=== PATIENT | female | born 1990 | race Caucasian/White ===

== ENCOUNTER → 2016-09-25 | Day surgery (SDC) | payer OTHER ==
[~2016-09-25] VITALS: Ht 157.5 cm; Wt 56.0 kg
[~2016-09-25] MED LIST: ACETAMINOPHEN 1000 MG/100 ML VIAL IV ONE; ADDE30TA PO; ALBU6.7H INH; ALPR1TAB3 PO; ASCO500T PO; AZO-95TA2 PO; B-COCAP9 PO; BIOT1CAP2 PO; CIPR-9 PO; COLA100C3 PO; CRAN125T PO; DEXAMETHASONE SOD PHOS 4 MG/ML VIAL ONE; DO NOT ADM ANY ANTICOAGULANT DRUGS XX PRN; FERR1TAB7; FERR65TA PO; HYDR2TAB PO; INSULIN HUMAN REGULAR 1,000 UNITS/10 ML VIAL SQ PRN; KETOROLAC TROMETHAMINE 30 MG/ML (IVP) VIAL IV PUSH PRN; KETOROLAC TROMETHAMINE 60 MG/2 ML (IM) VIAL IM ONE; LACTATED RINGER'S 1000 ML IV SCH; LIDOCAINE 1%/EPINEPHrine 1:100,000 SOLN 20 ML VIAL ONE; LORA-361 PO; MACR100C2 PO; METOPROLOL TARTRATE 25 MG TAB PO PRN; MIDAZOLAM HCL 2 MG/2 ML VIAL ONE; MULT1LOZ BUCCAL; ONDANSETRON HCL 4 MG/2 ML VIAL ONE; ORTHTAB4 PO; OXYB5TAB10 PO; OXYC1TAB63 PO; PROPOFOL 200 MG/20 ML AMP IV ONE; PYRI200T4 PO; SODIUM CHLORID 0.9% 500 ML IV SCH; TYLETAB34 PO; VESI5TAB PO; ZOFR8TAB PO; [UNRECOGNIZED DRUG - CODE] PO; fentaNYL CITRATE 250 MCG/5 ML AMP ONE
[2016-09-25 05:48] VITALS: BP 107/68; PULSE 94; RESP 20; TEMP 98.5; O2SAT 100
--- NOTE | 2016-09-25 08:27 | MP ---
cc: FANNIE BALLARD,YANIV Shrestha MD DATE OF SURGERY 09/25/2016 PREOPERATIVE DIAGNOSIS Squamous cell carcinoma of the cervix. 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 PROCEDURE 1. Examination under anesthesia, cervix biopsies. 2. Cystoscopy. 3. Proctoscopy. SURGEON Yaniv Waldron MD INTRAOPERATIVE CONSULT Dr. Delta Claros, Radiation Oncology ANESTHESIA Laryngeal mask anesthesia. ESTIMATED BLOOD LOSS 40 cc. HISTORY A 26-year-old female who on exam by Dr. Ballard was found to have an exophytic tumor. Biopsy showed invasive squamous cell carcinoma. She has been bleeding irregularly for many months, even more so in the last couple of months. She was seen in the oncology clinic. She was counseled. She had a CAT scan yesterday. She presents now for further evaluation with exam under anesthesia to help complete clinical staging and assessment of the extent of the tumor. FINDINGS On exam under anesthesia there was no appreciably enlarged inguinal lymph nodes. External genitalia without mass or lesion. Upon speculum exam the entire cervix is replaced with large exophytic tumor. Bimanual exam shows some early parametrial infiltration on the left side but still with some mobility on the right side. However, there was clear infiltration with fixation of the right parametria, cannot say definitively if there is extension all the way to the right pelvic sidewall, but there is clearly significant right parametrial involvement. A sterile ruler is used to measure from the 12 o'clock position to the 6 o'clock position of the tumor and measures between 7 and 8 cm in diameter. It is friable, hemorrhagic. On cystoscopy there is amorphous debris in the bladder but no obvious tumor infiltration. No mass or nodularity. The ureteral ostia are visualized and is efflux of urine bilaterally. The remainder of the mucosa appears normal. On proctoscopy to 16 cm the mucosa appears normal. There is no obvious invasion, tumor, polyp or other abnormality. There is extrinsic compression from the cervical tumor and visibility is limited above that from being unprepped and from the angle change to the bowel from the cervix. PROCEDURE The patient was taken to the operating room, placed in dorsal lithotomy position after laryngeal mask anesthesia was administered. A time-out was undertaken. The patient was identified by sight recognition and hospital ID bracelet and the proposed procedure was reviewed and confirmed. Exam under anesthesia was performed with the findings as described above. She was prepped and draped in sterile fashion. Biopsies of the cervix were obtained. A Ray-Kimberli sponge was placed in the vagina to assist in hemostasis. Cystoscopy was performed using a 30-degree scope with the findings as described above. The bladder was drained and rigid proctosigmoidoscopy was performed with the findings as described above. A change of sterile gloves was undertaken. Dr. Delta Claros was now present for evaluation, performed an exam under anesthesia as well and the tumor was rendered hemostatic. first with Monsel's solution and then a little bit of continued oozing was addressed by placing Rolo hemostatic agent over the entire surface of the tumor and there was satisfactory hemostasis. The Ray-Kimberli sponge that had been in the vagina was removed prior to application of the hemostatic agent. There were no remaining foreign objects in the vagina. Preliminary and final counts were correct. She was returned to dorsal supine position and was pending reversal of anesthesia when I left the operating room to precede her to the Post-Anesthesia Care Unit. MD RONAK Benites/LAWRENCE /7:48 AM /8:13 AM
[2016-09-25 09:30] VITALS: BP 94/58; PULSE 73; RESP 20; TEMP 98; O2SAT 100
== END | disposition home or self-care (01) ==
LOC: HSDC 05:12
PROVIDERS: ATTEND Obstetrics & Gynecology Gynecologic Oncology
DX: C53.9 Malignant neoplasm of cervix uteri, unspecified (principal)
CPT/HCPCS: 00940; 45300; 52000; 57500; 86850; 86900; 86901; 88305; J0131; J1100; J1885; J2250; J2405; J3010; J7120; 88112

== ENCOUNTER 2016-10-02 13:30 | Inpatient (IN) | payer OTHER ==
[~2016-10-02] VITALS: Ht 157.5 cm; Wt 57.6 kg
[~2016-10-02 13:30] MED LIST changes: -ACETAMINOPHEN 1000 MG/100 ML VIAL IV ONE; -ASCO500T PO; -AZO-95TA2 PO; -CIPR-9 PO; -COLA100C3 PO; -DEXAMETHASONE SOD PHOS 4 MG/ML VIAL ONE; -DO NOT ADM ANY ANTICOAGULANT DRUGS XX PRN; -FERR1TAB7; -HYDR2TAB PO; -INSULIN HUMAN REGULAR 1,000 UNITS/10 ML VIAL SQ PRN; -KETOROLAC TROMETHAMINE 30 MG/ML (IVP) VIAL IV PUSH PRN; -KETOROLAC TROMETHAMINE 60 MG/2 ML (IM) VIAL IM ONE; -LACTATED RINGER'S 1000 ML IV SCH; -LIDOCAINE 1%/EPINEPHrine 1:100,000 SOLN 20 ML VIAL ONE; -MACR100C2 PO; -METOPROLOL TARTRATE 25 MG TAB PO PRN; -MIDAZOLAM HCL 2 MG/2 ML VIAL ONE; -MULT1LOZ BUCCAL; -ONDANSETRON HCL 4 MG/2 ML VIAL ONE; -ORTHTAB4 PO; -OXYB5TAB10 PO; -OXYC1TAB63 PO; -PROPOFOL 200 MG/20 ML AMP IV ONE; -PYRI200T4 PO; -SODIUM CHLORID 0.9% 500 ML IV SCH; -VESI5TAB PO; -ZOFR8TAB PO; -[UNRECOGNIZED DRUG - CODE] PO; -fentaNYL CITRATE 250 MCG/5 ML AMP ONE
[2016-10-09 09:11] VITALS: BP 103/60; PULSE 88; RESP 20; TEMP 97.8; O2SAT 100
[2016-10-09] MEDS ORDERED: [UNRECOGNIZED DRUG - CODE] PO ×2 (09:28)
[2016-10-09] MEDS ORDERED: ZOFR8TAB PO ×2 (09:28)
[2016-10-09] MEDS ORDERED: HEPARIN SODIUM - SQ 10,000 UNITS/ML VIAL SQ SCH (09:30)
[2016-10-09] MEDS ORDERED: INSULIN HUMAN REGULAR 1,000 UNITS/10 ML VIAL SQ PRN (09:45)
[2016-10-09] MEDS ORDERED: LACTATED RINGER'S 1000 ML IV SCH (09:45)
[2016-10-09] MEDS ORDERED: METOPROLOL TARTRATE 25 MG TAB PO PRN (09:45)
[2016-10-09] MEDS ORDERED: SODIUM CHLORID 0.9% 500 ML IV SCH (09:45)
[2016-10-09] MEDS ORDERED: LEVOFLOXACIN 500 MG PREMIX INJ 100 ML IV SCH (11:00)
[2016-10-09] MEDS ORDERED: METRONIDAZOLE 500 MG/100 ML ISONTONIC SOLN IV SCH (11:00)
[2016-10-09] MEDS ORDERED: FAMOTIDINE 20 MG/2 ML VIAL ONE (11:45)
[2016-10-09] MEDS ORDERED: KETOROLAC TROMETHAMINE 60 MG/2 ML (IM) VIAL IM ONE (12:00)
[2016-10-09] MEDS ORDERED: PROPOFOL 200 MG/20 ML AMP IV ONE (12:00)
[2016-10-09] MEDS ORDERED: ONDANSETRON HCL 4 MG/2 ML VIAL IV PUSH ONE (12:00)
[2016-10-09] MEDS ORDERED: LACTATED RINGER'S 1000 ML INJ 1,000 ML IV ONE (12:00)
[2016-10-09] MEDS ORDERED: MIDAZOLAM HCL 2 MG/2 ML VIAL ONE (12:46)
[2016-10-09] MEDS ORDERED: DEXAMETHASONE SOD PHOS 4 MG/ML VIAL ONE (12:46)
[2016-10-09] MEDS ORDERED: fentaNYL CITRATE 250 MCG/5 ML AMP ONE ×2 (12:59→16:46)
[2016-10-09] MEDS ORDERED: ACETAMINOPHEN 1000 MG/100 ML VIAL IV ONE (12:59)
[2016-10-09] MEDS ORDERED: ONDANSETRON HCL 4 MG/2 ML VIAL ONE (12:59)
[2016-10-09] MEDS ORDERED: LIDOCAINE 1%/EPINEPHrine 1:100,000 SOLN 30 ML VIAL INFIL ONE (13:44)
[2016-10-09] MEDS ORDERED: SUGAMMADEX SODIUM 200 MG/2 ML VIAL IV PUSH ONE ×2 (15:54)
[2016-10-09] MEDS ORDERED: DO NOT ADM ANY ANTICOAGULANT DRUGS XX PRN (16:34)
[2016-10-09] MEDS ORDERED: SODIUM CHLORIDE 0.9% FLUSH 5 ML FLUSH FLUSH PRN (16:45)
[2016-10-09] MEDS ORDERED: ONDANSETRON HCL 4 MG/2 ML VIAL IVP PRN (16:45)
[2016-10-09] MEDS ORDERED: oxyCODONE/ACETAMINOPHEN 5 MG/325 MG TAB PO PRN (16:45)
[2016-10-09] MEDS ORDERED: ALPRAZolam 1 MG TAB PO PRN (16:45)
[2016-10-09] MEDS ORDERED: diphenhydrAMINE HCL 25 MG CAP PO PRN (16:45)
[2016-10-09] MEDS ORDERED: HYDROmorphone HCL PF 1 MG/ML VIAL IVP PRN (16:45)
[2016-10-09] MEDS ORDERED: ALBUTEROL SULFATE 90 MCG/ACT HFA 8 GM INHALER INH PRN (16:45)
[2016-10-09] MEDS: D5-1/2 NS + KCL 20 MEQ INJ 1,000 ML IV SCH ×2 (17:00→22:48)
[2016-10-09] MEDS ORDERED: *morphine SULFATE 8 MG/ML PERIprocedure ONLY ONE ×2 (17:06→17:22)
[2016-10-09] MEDS: DEXTROAMPHETAMINE/AMPHETAMINE 30 MG TAB PO SCH (18:00)
[2016-10-09] MEDS: KETOROLAC TROMETHAMINE 30 MG/ML (IVP) VIAL IVP SCH ×2 (18:00→22:48)
[2016-10-09 18:05] VITALS: BP 102/76; PULSE 88; RESP 20; TEMP 98; O2SAT 97
[2016-10-09] MEDS: SODIUM CHLORIDE 0.9% FLUSH 5 ML FLUSH FLUSH SCH (19:35)
[2016-10-09] MEDS: oxyCODONE/ACETAMINOPHEN 5 MG/325 MG TAB PO PRN ×2 (19:35→22:48)
[2016-10-09 20:00] VITALS: BP 96/62; PULSE 68; RESP 16; TEMP 96.9; O2SAT 95
[2016-10-10 00:07] VITALS: BP 110/64; PULSE 60; RESP 16; TEMP 96; O2SAT 99
[2016-10-10 04:00] VITALS: BP 101/59; PULSE 81; RESP 16; TEMP 98.4; O2SAT 96
[2016-10-10] MEDS: KETOROLAC TROMETHAMINE 30 MG/ML (IVP) VIAL IVP SCH (05:13)
[2016-10-10] MEDS: oxyCODONE/ACETAMINOPHEN 5 MG/325 MG TAB PO PRN (05:15)
[2016-10-10 05:40] VITALS: BP 106/64; PULSE 67; RESP 16; TEMP 96.1; O2SAT 99
[2016-10-10 07:10] LABS: AUTOMATED NEUTROPHIL # 15.8 TH/MM3 (1.8-7.7); BASOPHIL % 0.1 % (0.0-2.0); EOSINOPHIL % 0.1 % (0.0-4.0); HEMATOCRIT 30.3 % (35.0-46.0); HEMO FLAGS DIFF FINAL; LYMPH % 10.5 % (9.0-44.0); LYMPHOCYTE # 2.1 TH/MM3 (1.0-4.8); MEAN CELL VOLUME 79.9 FL (80.0-100.0); MEAN CORPUSCULAR HEMOGLOBIN 26.2 PG (27.0-34.0); MEAN CORPUSCULAR HGB CONC 32.8 % (32.0-36.0); MONO % 10.6 % (0.0-8.0); NEUT % 78.7 % (16.0-70.0); PLATELET COUNT 609 TH/MM3 (150-450); RED CELL DISTRIBUTION WIDTH 14.1 % (11.6-17.2)
[2016-10-10 07:34] LABS: BICARBONATE 27.1 MEQ/L (21.0-32.0); POTASSIUM 4.3 MEQ/L (3.5-5.1)
[2016-10-10] MEDS ORDERED: OXYC1TAB63 PO (07:56)
[2016-10-10 08:00] VITALS: BP 91/53; PULSE 71; RESP 16; TEMP 96; O2SAT 98
[2016-10-10] MEDS: D5-1/2 NS + KCL 20 MEQ INJ 1,000 ML IV SCH (08:38)
[2016-10-10] MEDS: DEXTROAMPHETAMINE/AMPHETAMINE 30 MG TAB PO SCH (08:41)
[2016-10-10] MEDS: SODIUM CHLORIDE 0.9% FLUSH 5 ML FLUSH FLUSH SCH (08:41)
[2016-10-10] MEDS ORDERED: LORATADINE 10 MG TAB PO SCH (09:00)
[2016-10-10] MEDS ORDERED: VANCOMYCIN INJ 1,000 MG in SODIUM CHLOR 0.9% 250 ML INJ 250 ML IV SCH (09:15)
[2016-10-10 10:14] LABS: APTT (PATIENT) 34.1 SEC (24.3-30.1); INTERNATIONAL NORMALIZED RATIO 1.1 RATIO; PROTHROMBIN TIME - PATIENT 11.9 SEC (9.8-11.6)
[2016-10-10 10:17] VITALS: O2SAT 100
[2016-10-11] MEDS ORDERED: COLA100C3 PO (16:33)
[2016-10-11] MEDS ORDERED: HYDR2TAB PO (19:15)
[2016-10-11] MEDS ORDERED: CIPR-9 PO (19:15)
--- NOTE | 2016-10-15 19:35 | MP ---
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 Desires preservation of ovarian function. 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 Desires preservation of ovarian function. Bilateral pelvic lymphadenopathy. PROCEDURE Robotic-assisted laparoscopic bilateral ovarian transposition bilateral salpingectomy and bilateral external iliac excisional lymph node biopsies. SURGEON Yaniv Waldron MD. ADMINISTRATIVE SUPPORT CLERK [place] first aid officer ANESTHESIA: General endotracheal anesthesia ESTIMATED BLOOD LOSS 75 cc IV FLUIDS 1000 cc URINE OUTPUT 250 cc. HISTORY 26-year-old female recently diagnosed with squamous cell carcinoma of the cervix. Clinical stage II B, has been counseled treatment plan and recommendations include radiation therapy plus weekly chemotherapy. Given that she is remote from menopause at the age of 26. We discussed the potential value of ovarian transposition and trying to preserve ovarian function and to try to avoid premature menopause by moving the ovaries out of the radiation field. We also talked about the possible cancer reducing risk of removing the fallopian tubes. She is in favor of this, she is seen again in preop holding area. Questions were answered and she wishes to move forward with this procedure. FINDINGS The findings are as previously described. Pelvic exam was not repeated due to risk of bleeding. The uterus itself was normal size. The cervix and parametria were markedly enlarged infiltrated with tumor, tubes and ovaries grossly appeared normal Along the external iliac artery and iliac vein bilaterally were enlarged lymph nodes. Each approximately one and a half to two cm's. There was a single prominent lymph node or collection of lymph nodes on each side. The remainder of the lymph attic tissue visibly and palpably appeared normal. There was no overt enlarged lymph nodes in the para-aortic region. There are no peritoneal implants liver diaphragm edges were smooth. Omentum, large small bowel adjacent mesentery grossly appeared normal. PROCEDURE The patient taken to the operating room placed in dorsal lithotomy position after general endotracheal anesthesia was administered time-out was undertaken. The patient was identified by sight recognition and hospital ID bracelet and the proposed procedure was reviewed and confirmed. She was carefully positioned in padded Kevin stirrups. Her arms were padded and secured to the sides. She was further secured to the operating table with egg crate padding tape in across chest over the shoulder fashion. All sites were noted be properly aligned with no malalignments or pressure points. She was prepped in sterile fashion. Hughes catheter placed in the bladder, draped in sterile fashion confirmed that an orogastric airway was in the stomach on suction. With manual elevation and direct laparoscopic visualization 5 mm cannula introduced into the left upper abdomen and atraumatic fashion. Carbon dioxide gas was insufflated. Under laparoscopic visualization a 12 mm cannula placed in midline above the umbilicus 8 mm cannulas placed in the right upper abdomen left lateral abdomen. The original 5-mm cannula exchanged for an 8-mm cannula. She was placed in steep Trendelenburg position. Three Ray-Kimberli sponges were placed around the root of the small bowel mesentery. The anatomy was six and evaluated with findings as described above. Robotic system brought into the operative field attached in usual fashion. Monopolar scissors, fenestrated bipolar forceps and progressed manipulators were placed in arms #1 two and three respectively and took my place at the surgeon's console. Retroperitoneal dissection was carried out on the right side and carried well above the pelvic brim the right ureter was identified. The right infundibulopelvic ligament was isolated. The intervening peritoneum was opened. The infundibulopelvic ligament was isolated to well above the pelvic brim in the right utero-ovarian ligament was isolated. The right utero-ovarian ligament was cauterized. The right fallopian tube was removed with sharp dissection and focal cautery. The fallopian tube was placed in the cul-de-sac for later retrieval. Tension was directed toward the left side where similarly left retroperitoneal dissection was carried out. The left ureter was identified. The left infundibulopelvic ligament was isolated. The intervening peritoneum was opened infundibulopelvic ligament was isolated, mobilize well above the pelvic brim and the left utero-ovarian ligament was isolated. The left fallopian tube was removed with sharp dissection focal cautery placed in the cul-de-sac for later retrieval. Laparoscopic of metal clips were placed on the utero-ovarian ligaments. The x2 bilaterally and then the utero-ovarian ligaments were transected and the ovaries were placed into their ipsilateral paracolic gutter above the pelvic brim. Instruments one and three exchanged for needle drivers as 0 Vicryl suture were introduced, first on the left side the ovary was organized in a fashion where the infundibulopelvic ligament was not compromised or twisted and was secured to the adjacent soft tissue with interrupted 0 Vicryl sutures passing through the peritoneum, subperitoneal fat adjacent tissue and through the remnant of the utero ovarian ligament until the ovary was secured and prevented from any significant rotation and without compromise to the blood supply. Similar steps were carried out on the right side where the right ovary was orchestrated in the right pericolic gutter gonadal vessels were not on tension were not twisted and the ovary was secured to surrounding tissue with multiple interrupted 0 Vicryl sutures in such a fashion to keep the ovary from any significant rotation or compromise to the blood supply. Attention was redirected to the pelvis instruments one and three of were exchanged back to bipolar spur monopolar scissors and fenestrated bipolar forceps. Retroperitoneal dissection was carried out on the left side overlying the external iliac artery and the iliac vein. Sharp dissection and focal cautery were used to remove the suspicious enlarged lymph node from the left iliac region. Small bleeders rendered hemostatic with bipolar cautery and this lymph node was placed in the cul-de-sac for later retrieval. Attention was directed toward the right side where similarly right retroperitoneal dissection was carried out overlying the right external iliac artery and vein focal sharp dissection bipolar cautery were used to free the enlarged lymph nodes were somewhat fixed to the external iliac vessels to remove them and place that tissue and the cul-de-sac for later removal. Inspection of the pelvic lymph nodes and para-aortic region showed no other significant abnormality, it was felt that all reasonable surgical objectives had been completed. All sites were irrigated noted be hemostatic. The robotic instruments were removed. The robotic system was disengaged from the operative field and I reentered the bedside under sterile condition. Each of the three Ray-Kimberli sponges were removed through the 12-mm cannula. Each were grasped and removed individually inspected and noted to be removed in their entirety. Next a 12 centimeter EndoCatch bag was used to capture the lymph nodes in the fallopian tubes which were brought up through the abdominal wall cannula and removed and and labeled accordingly. The 12 mm fascial defect was closed with interrupted 0 Vicryl sutures which rendered the fascia completely airtight and hemostatic remaining cannulas were withdrawn. Carbon dioxide gas was removed from the peritoneal cavity. 3-0 Vicryl subcutaneous 3-0 Vicryl subcuticular and Steri-Strips used to close these incisions. Preliminary final counts were correct. There were no remaining foreign objects in the peritoneal cavity. She was returned to dorsal supine position and was pending reversal of anesthesia when I left the operating room to precede her to the Post Anesthesia Care Unit and speak to family members were waiting in the surgical waiting area. MD RONAK Benites/olivia /7:38 AM /7:13 PM
--- NOTE | 2016-10-18 19:32 | MD ---
cc: MACKENZIE CARRION,FANNIE YOUSSEF,YANIV Shrestha MD FACTOR,ELMER Ivy MD ADMISSION DATE: 10/09/2016 DISCHARGE DATE: 10/10/2016 PROCEDURE PERFORMED: On 10/09/2016, robotic-assisted laparoscopic bilateral ovarian transposition, bilateral salpingectomy, bilateral pelvic excisional lymph node biopsies. DIAGNOSIS: Clinical stage IIB squamous cell carcinoma of the cervix and forthcoming radiation with desire to preserve ovarian function if possible. HOSPITAL COURSE: She did well in the early postop period. No acute distress. Pain under control. In's and out's were 2650/2150. LABS: Hemoglobin and hematocrit this morning were 10.0 and 30.3. Platelets 609,000. White count 20,000. Electrolytes essentially normal. BUN and creatinine 7 and 0.47. PHYSICAL EXAMINATION: Afebrile, pulse 67, respirations 16, blood pressure 106/64, O2 saturations 99%. Alert, oriented x3 in no acute distress. Lungs: Clear. Cardiovascular: Regular rate and rhythm. Abdominal incisions clean, dry and intact. 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 Extremities: Nontender. ASSESSMENT: Postop day #1 doing well in early postop period. Findings at the time of surgery, steps taken were reviewed, questions were answered. I reviewed activity restrictions. She expressed good understanding. She is aware that she is scheduled for venous access port placement this morning and is ready for discharge to home after the port is placed. She is also aware that she has a radiation oncology outpatient appointment for treatment simulation and planning this afternoon and I believe that is scheduled at 1:00 p.m. She is aware of PET scan scheduled for next week and she will follow up with me in approximately two weeks for a postoperative check and to ensure that we are moving forward with her chemotherapy in coordination with radiation therapy. PLAN: The plan therefore is discharge to home after interventional radiology places the port and she is to move forward with the scheduled appointments as listed above and to contact our office should she have any questions or problems. She is to eat a regular diet, resume prior medications, although a prescription for Percocet is given so she will put on hold her previous Tylenol with Codeine and our office number was made available to contact us for a follow up appointment within two weeks and to call us should she have any questions or problems. Yaniv MD MEENAKSHI Youssef /7:59 AM /7:24 PM
[2016-11-19] MEDS ORDERED: AZO-95TA2 PO (08:36)
[2017-01-26] MEDS ORDERED: VESI5TAB PO (09:35)
== END 2016-10-10 12:53 | disposition home or self-care (01) | DRG 741 ==
LOC: HSDI 10-09 08:21 → EDSTATUS 10-09 12:00 → HOCA 10-09 18:09
PROVIDERS: ADMIT Obstetrics & Gynecology Gynecologic Oncology; ATTEND Obstetrics & Gynecology Gynecologic Oncology
PROC: 0UT74ZZ Resection of Bilateral Fallopian Tubes, Percutaneous Endoscopic Approach (ICD-10-PCS; 2016-10-09)
PROC: 07BC4ZX Excision of Pelvis Lymphatic, Percutaneous Endoscopic Approach, Diagnostic (ICD-10-PCS; 2016-10-09)
PROC: 8E0W4CZ Robotic Assisted Procedure of Trunk Region, Percutaneous Endoscopic Approach (ICD-10-PCS; 2016-10-09)
PROC: 0US24ZZ Reposition Bilateral Ovaries, Percutaneous Endoscopic Approach (ICD-10-PCS; principal; 2016-10-09 13:08)
DX: C53.9 Malignant neoplasm of cervix uteri, unspecified (principal); J45.909 Unspecified asthma, uncomplicated; R59.0 Localized enlarged lymph nodes
CPT/HCPCS: 77263; 77290; 77334; 80048; 84703; 85025; 85610; 85730; 86850; 86900; 86901; 88305; 94150; J0131; J1100; J1644; J1885; J1956; J2250; J2270; J2405; J3010; J3370; J3480; J7050; J7120

== ENCOUNTER 2016-10-11 16:01 | Emergency (ER) | payer OTHER ==
[~2016-10-11] VITALS: Ht 157.5 cm; Wt 56.0 kg
[~2016-10-11 16:01] MED LIST changes: +OXYC1TAB63 PO; +ZOFR8TAB PO; +[UNRECOGNIZED DRUG - CODE] PO
[2016-10-11 16:03] VITALS: BP 118/72; PULSE 110; RESP 20; TEMP 97.8; O2SAT 98
--- NOTE | 2016-10-11 16:14 | PD ---
HPI Chief Complaint: Abdominal Pain Time Seen by Provider: 16:13 Travel History International Travel<30 days: No Contact w/Intl Traveler<30days: No Traveled to known affect area: No History of Present Illness HPI 26-year-old female with history of cervical cancer, presents the emergency department with worsening abdominal pain. Patient was he underwent a laparoscopic ovarian transposition procedure by Dr. Chari Herrera on October 09, 2016. PFSH Past Medical History ADD: Yes Cancer: Yes (CERVICAL CA) Cardiovascular Problems: No Diabetes: No Endocrine: No Genitourinary: No Hepatitis: No Hiatal Hernia: No Immune Disorder: No Musculoskeletal: No Neurologic: No Psychiatric: Yes (ANXIETY) Reproductive: Yes Respiratory: Yes (STRESS ASTHMA) Thyroid Disease: No ?: Not LMP: UNKNOWN Past Surgical History Abdominal Surgery: No AICD: No Cardiac Surgery: No Ear Surgery: No Endocrine Surgery: No Eye Surgery: No Genitourinary Surgery: No Gynecologic Surgery: Yes (CONE BIOPSY) Joint Replacement: No Oral Surgery: No Pacemaker: No Thoracic Surgery: No Social History Alcohol Use: No Tobacco Use: Yes Substance Use: No Allergies-Medications (Allergen,Severity, Reaction): Coded Allergies: Tramadol (Verified Allergy, Severe, Hives, 10/11/16) Amoxicillin (Verified Allergy, Unknown, 10/11/16) Penicillin (Verified Allergy, Unknown, 10/11/16) Reported Meds & Prescriptions Reported Meds & Active Scripts Active Cipro (Ciprofloxacin HCl) 500 Mg Tab 500 Mg PO BID Hydromorphone (Hydromorphone HCl) 2 Mg Tab 2 Mg PO Q4H PRN Oxycodone-Acetaminophen 5-325 mg Tab 1 Tab PO Q4H PRN Reported Colace (Docusate Sodium) 100 Mg Cap 100 Mg PO BID PRN Gas Relief Extra Strength (Simethicone) 125 Mg Cap 1 Tab PO Q8HR PRN Zofran (Ondansetron HCl) 8 Mg Tab 8 Mg PO TID Feosol (Ferrous Sulfate) 65 Mg Tab 65 Mg PO DAILY Claritin (Loratadine) 10 Mg Tab 10 Mg PO DAILY Cranberry (Cranberry (Vaccinium Macrocarpon)) 125 Mg Tab 1 Tab PO DAILY Biotin 1 Mg Cap 1 Mg PO DAILY Super B-Complex (B-Complex W/Biotin & Folic Acid) 1 Cap 1 Cap PO DAILY Alprazolam 1 Mg Tab 1 Mg PO Q6H PRN Proventil Hfa 6.7 GM Inh (Albuterol Sulfate) 90 Mcg/Act Aer 2 Puff INH Q6H PRN Adderall (Amphetamine-Dextroamphetamine) 30 Mg Tab 30 Mg PO TID Avoid late evening doses. Space doses at least 4 to 6 hours if more than once/day dosing. Review of Systems General / Constitutional: No: Fever, Chills Eyes: No: Visual changes HENT: No: Headaches Cardiovascular: No: Chest Pain or Discomfort Respiratory: Positive: Cough, Shortness of Breath, Pleuritic Pain (in the left flank and shoulder), No: Wheezing, Sneezing, Orthopnea, Hemoptysis Gastrointestinal: Positive: Nausea, Abdominal Pain, No: Vomiting, Diarrhea Genitourinary: No: Urgency, Frequency, Dysuria Musculoskeletal: No: Pain Skin: No Rash Neurologic: No: Weakness Psychiatric: No: Depression Endocrine: No: Polydipsia Hematologic/Lymphatic: No: Easy Bruising Physical Exam Narrative GENERAL: Patient appears in moderate distress. SKIN: Warm and dry. Normal color. Normal turgor. HEAD: Atraumatic. Normocephalic. EYES: Pupils equal and round. No scleral icterus. No injection or drainage. ENT: No nasal bleeding or discharge. Mucous membranes pink and moist. Pharynx is normal. Airway is patent. NECK: Trachea midline. No JVD. Supple nontender. CARDIOVASCULAR: Tachycardic rate and normal rhythm. RESPIRATORY: No accessory muscle use. Clear to auscultation. Breath sounds equal bilaterally. GASTROINTESTINAL: Abdomen soft, moderate diffuse tenderness, nondistended. Patient has multiple incision sites from previous surgery which appear to be well healing without leading or discharge. Hepatic and splenic margins not palpable. MUSCULOSKELETAL: Extremities without clubbing, cyanosis, or edema. No obvious deformities. NEUROLOGICAL: Awake and alert. No obvious cranial nerve deficits. Motor grossly within normal limits. Five out of 5 muscle strength in the arms and legs. Normal speech. PSYCHIATRIC: Appropriate mood and affect; insight and judgment normal. Data Data Last Documented VS Vital Signs Date Time Temp Pulse Resp B/P Pulse Ox O2 Delivery O2 Flow Rate FiO2 10/11/16 18:00 82 16 117/76 99 Room Air 10/11/16 16:03 97.8 Orders Urinalysis - C+S If Indicated (10/11/16 16:08) Ed Urine Pregnancytest Poc (10/11/16 16:08) Complete Blood Count With Diff (10/11/16 16:20) Comprehensive Metabolic Panel (10/11/16 16:20) Lipase (10/11/16 16:20) Lactic Acid (10/11/16 16:20) Prothrombin Time / Inr (Pt) (10/11/16 16:20) Act Partial Throm Time (Ptt) (10/11/16 16:20) Iv Access Insert/Monitor (10/11/16 16:20) Ecg Monitoring (10/11/16 16:20) Oximetry (10/11/16 16:20) NPO (10/11/16 16:20) Ondansetron Inj (Zofran Inj) (10/11/16 16:30) Sodium Chlor 0.9% 1000 Ml Inj (Ns 1000 M (10/11/16 16:20) Sodium Chloride 0.9% Flush (Ns Flush) (10/11/16 16:30) Electrocardiogram (10/11/16 16:20) Hydromorphone Pf Inj (Dilaudid Pf Inj) (10/11/16 16:30) Ct Abd/Pel W Iv Contrast(Rout) (10/11/16 16:20) Ct Pulmonary Angiogram (10/11/16 16:20) Urine Culture (10/11/16 16:20) Iohexol 350 Inj (Omnipaque 350 Inj) (10/11/16 18:05) Hydromorphone Pf Inj (Dilaudid Pf Inj) (10/11/16 18:45) Ceftriaxone Inj (Rocephin Inj) (10/11/16 18:45) Labs Laboratory Tests Test 10/11/16 10/11/16 16:20 16:30 Urine Color YELLOW Urine Turbidity HAZY Urine pH 6.5 Urine Specific [place] 1.011 Urine Protein NEG mg/dL Urine Glucose (UA) NEG mg/dL Urine Ketones NEG mg/dL Urine Occult Blood TRACE Urine Nitrite NEG Urine Bilirubin NEG Urine Urobilinogen LESS THAN 2.0 MG/DL Urine Leukocyte Esterase LARGE Urine RBC 9 /hpf Urine WBC 61 /hpf Urine Bacteria RARE /hpf Microscopic Urinalysis Comment CULTURE INDICATED White Blood Count 19.4 TH/MM3 Red Blood Count 4.53 MIL/MM3 Hemoglobin 11.7 GM/DL Hematocrit 36.5 % Mean Corpuscular Volume 80.5 FL Mean Corpuscular Hemoglobin 25.7 PG Mean Corpuscular Hemoglobin 31.9 % Concent Red Cell Distribution Width 14.1 % Platelet Count 686 TH/MM3 Mean Platelet Volume 7.0 FL Neutrophils (%) (Auto) 78.0 % Lymphocytes (%) (Auto) 11.7 % Monocytes (%) (Auto) 8.2 % Eosinophils (%) (Auto) 1.8 % Basophils (%) (Auto) 0.3 % Neutrophils # (Auto) 15.1 TH/MM3 Lymphocytes # (Auto) 2.3 TH/MM3 Monocytes # (Auto) 1.6 TH/MM3 Eosinophils # (Auto) 0.3 TH/MM3 Basophils # (Auto) 0.1 TH/MM3 CBC Comment DIFF FINAL Differential Comment Prothrombin Time 11.3 SEC Prothromb Time International 1.0 RATIO Ratio Activated Partial 32.2 SEC Thromboplast Time Sodium Level 134 MEQ/L Potassium Level 3.8 MEQ/L Chloride Level 97 MEQ/L Carbon Dioxide Level 27.2 MEQ/L Anion Gap 10 MEQ/L Blood Urea Nitrogen 4 MG/DL Creatinine 0.58 MG/DL Estimat Glomerular Filtration 124 ML/MIN Rate Random Glucose 102 MG/DL Lactic Acid Level 1.6 mmol/L Calcium Level 8.7 MG/DL Total Bilirubin 0.2 MG/DL Aspartate Amino Transf 11 U/L (AST/SGOT) Alanine Aminotransferase 12 U/L (ALT/SGPT) Alkaline Phosphatase 83 U/L Total Protein 7.6 GM/DL Albumin 2.7 GM/DL Lipase 62 U/L MDM Medical Decision Making Medical Screen Exam Complete: Yes Emergency Medical Condition: Yes Differential Diagnosis Postoperative abdominal pain. Pulmonary embolism. Pneumonia. Postoperative infection. Narrative Course Patient is medically stable at time of exam. Labs were ordered including CBC, CMP, lactic acid, lipase, comp has a metabolic panel, urinalysis, PT PTT and INR. EKG is obtained showing normal sinus rhythm without ST changes. This is reviewed with Dr. cunha. After discussion with Dr. Byrd an Abdominal CT with IV contrast as well as CT pulmonary angiogram is ordered. IV access is obtained patient is given 1000 mL's of normal saline bolus as well as 1 mg hydromorphone IV as well as 4 mg Zofran IV. CTA was unremarkable per radiologist. CT of the abdomen show free air consistent with recent laparoscopy, and question of pelvic hematoma versus mass in the pelvis. Radiologist discussed findings with me directly. Patient needed an additional 1 mg of hydromorphone IV. Call was placed to Dr. Dominguez who is covering for Dr. Waldron, and the patient was discussed. Patient is recommended to have hydromorphone at 2 mg every 4 hours when necessary pain in place of the Percocet she was given previously. Patient is given 1 g Rocephin IV, and will be continued on Cipro 500 mg twice a day 7 days for the UTI. Patient is to follow-up with Dr. Waldron's office for follow-up early next week. Patient can only return to the emergency Department with worsening symptoms as necessary. Diagnosis Primary Impression: Postoperative generalized abdominal pain Referrals: Chari Waldron MD call for appointment Patient Instructions: General Instructions, Narcotic given in the ED Additional Instructions: Patient is recommended to have hydromorphone at 2 mg every 4 hours when necessary pain in place of the Percocet she was given previously. Patient is given 1 g Rocephin IV, and will be continued on Cipro 500 mg twice a day 7 days for the UTI. Patient is to follow-up with Dr. Waldron's office for follow-up early next week. Patient can only return to the emergency Department with worsening symptoms as necessary. Med/Other Pt SpecificInfo: Prescription(s) given Scripts Ciprofloxacin (Cipro)500 Mg [id number] Mg PO BID #14 TAB Ref 0 Prov:Jesse Byrd MD 10/11/16 Hydromorphone 2 Mg Tab2 Mg PO Q4H PRN (PAIN) #40 TAB Ref 0 Prov:Jesse Byrd MD 10/11/16 Disposition: 01 DISCHARGE HOME Condition: Stable Sanjay Mckoy Oct 11, 2016 16:14
[2016-10-11 16:18] VITALS: BP 114/73; PULSE 99; RESP 19; O2SAT 100
[2016-10-11] MEDS ORDERED: SODIUM CHLOR 0.9% 1000 ML INJ 1,000 ML IV SCH (16:20)
[2016-10-11] MEDS ORDERED: HYDROmorphone HCL PF 1 MG/ML VIAL IVS ONE (16:30)
[2016-10-11] MEDS ORDERED: ONDANSETRON HCL 4 MG/2 ML VIAL IVP ONE (16:30)
[2016-10-11] MEDS ORDERED: SODIUM CHLORIDE 0.9% FLUSH 5 ML FLUSH IVF PRN (16:30)
[2016-10-11] MEDS ORDERED: COLA100C3 PO (16:33)
[2016-10-11 16:48] LABS: AUTOMATED NEUTROPHIL # 15.1 TH/MM3 (1.8-7.7); BASOPHIL # 0.1 TH/MM3 (0-0.2); BASOPHIL % 0.3 % (0.0-2.0); EOSINOPHIL # 0.3 TH/MM3 (0-0.4); EOSINOPHIL % 1.8 % (0.0-4.0); HEMATOCRIT 36.5 % (35.0-46.0); HEMO FLAGS DIFF FINAL; LYMPH % 11.7 % (9.0-44.0); LYMPHOCYTE # 2.3 TH/MM3 (1.0-4.8); MEAN CELL VOLUME 80.5 FL (80.0-100.0); MEAN CORPUSCULAR HEMOGLOBIN 25.7 PG (27.0-34.0); MEAN CORPUSCULAR HGB CONC 31.9 % (32.0-36.0); MONO % 8.2 % (0.0-8.0); PLATELET COUNT 686 TH/MM3 (150-450); RED BLOOD COUNT 4.53 MIL/MM3 (4.00-5.30); RED CELL DISTRIBUTION WIDTH 14.1 % (11.6-17.2); WHITE BLOOD COUNT 19.4 TH/MM3 (4.0-11.0)
[2016-10-11 16:57] LABS: BACTERIA, URINE RARE /hpf; BLOOD, URINE TRACE (NEG); COMMENT (UR) CULTURE INDICATED; CULTURE IF INDICATED CULTURE INDICATED; GLUCOSE,URINE NEG (NEG); KETONE, URINE NEG (NEG); NITRITE,URINE NEG (NEG); PH, URINE 6.5 (5.0-8.5); URINE COLOR YELLOW (YELLW/STRAW)
[2016-10-11 17:01] LABS: APTT (PATIENT) 32.2 SEC (24.3-30.1); PROTHROMBIN TIME - PATIENT 11.3 SEC (9.8-11.6)
[2016-10-11 17:21] VITALS: O2SAT 99
[2016-10-11 17:35] LABS: ALT (GPT) 12 U/L (10-53); ANION GAP 10 MEQ/L (5-15); AST (GOT) 11 U/L (15-37); BICARBONATE 27.2 MEQ/L (21.0-32.0); BLOOD UREA NITROGEN 4 MG/DL (7-18); CHLORIDE 97 MEQ/L (98-107); GLOMERULAR FILTRATION RATE 124 ML/MIN (>89); POTASSIUM 3.8 MEQ/L (3.5-5.1); SODIUM (NA) 134 MEQ/L (136-145)
[2016-10-11 17:38] LABS: ALKALINE PHOSPHATASE 83 U/L (45-117); TOTAL BILIRUBIN ADULT 0.2 MG/DL (0.2-1.0)
[2016-10-11 18:00] VITALS: BP 117/76; PULSE 82; RESP 16; O2SAT 99
[2016-10-11] MEDS ORDERED: IOHEXOL 350 MG/ML 10 ML VIAL (for RAD DIAG) IV ONE (18:05)
--- NOTE | 2016-10-11 18:23 | RADRPT ---
EXAM DATE/TIME: 10/11/2016 17:37 [facility] COMPARISON: No previous studies available for comparison. INDICATIONS : Chest pain status post ovarian transposition 2 days ago. IV CONTRAST: 74 cc Omnipaque 350 (iohexol) IV ; Cumulative dose for multiple exams. RADIATION DOSE: 7.97 CTDIvol (mGy) MEDICAL HISTORY : Carcinoma, cervical. SURGICAL HISTORY : Ovarian. ENCOUNTER: Initial ACUITY: 1 day PAIN SCALE: 5/10 LOCATION: Bilateral abdomen. TECHNIQUE: Volumetric scanning of the chest was performed using a pulmonary embolism protocol MIP images were re constructed. Using automated exposure control and adjustment of the mA and/or kV according to patien t size, radiation dose was kept as low as reasonably achievable to obtain optimal diagnostic quality images. FINDINGS: PULMONARY ARTERIES: No filling defects are seen in the pulmonary arteries through the segmental level. LUNGS: There is no consolidation or pneumothorax . No concerning pulmonary nodule is visualized. PLEURAE: There is no pleural thickening or pleural effusion. MEDIASTINUM: There is good visualization of the great vessels of the middle mediastinum. No evidence of mediastin al or hilar adenopathy/mass. MUSCULOSKELETAL: Within normal limits for patient age. MISCELLANEOUS: Free peritoneal air is seen. Patient had recent laparoscopy CONCLUSION: No pulmonary embolus. Moris Glasgow MD on October 11, 2016 at 18:20 Board Certified Radiologist. This report was verified electronically.
--- NOTE | 2016-10-11 18:29 | RADRPT ---
EXAM DATE/TIME: 10/11/2016 17:40 [facility] COMPARISON: No previous studies available for comparison. INDICATIONS : Abdomen pain status post ovarian transposition 2 days ago. IV CONTRAST: 74 cc Omnipaque 350 (iohexol) IV ORAL CONTRAST: No oral contrast ingested. RADIATION DOSE: 14.64 CTDIvol (mGy) MEDICAL HISTORY : Carcinoma, cervical. SURGICAL HISTORY : Ovarian. ENCOUNTER: Initial ACUITY: 1 day PAIN SCALE: 6/10 LOCATION: Bilateral abdomen. TECHNIQUE: Volumetric scanning of the abdomen and pelvis was performed. Using automated exposure control and ad justment of the mA and/or kV according to patient size, radiation dose was kept as low as reasonably achievable to obtain optimal diagnostic quality images. FINDINGS: There is fairly extensive subcutaneous air seen in the anterior abdominal wall deep subcutaneous fat. There is also free intraperitoneal air. The source of this air is not clearly identified. There i s some air identified within the soft tissues at the lower right pelvis. There is also some air seen adjacent to the descending colon in the left retroperitoneum. There is some air seen just lateral t o the left psoas muscle at the pelvic inlet region. The liver, spleen, pancreas, adrenal glands and kidneys are unremarkable. The IVC and aorta are norm al. There does appear to be a 6.6 cm rounded mass seen in the pelvis. This could be related to a promine nt uterus. A hematoma in the pelvis could have a similar appearance. What is thought to likely be t he uterus is seen extending superior to this just to the right of midline. The bowel is unremarkable. What appear to be clips are seen in the lower lateral abdominal regions b ilaterally. CONCLUSION: 1. Free intraperitoneal air. The source is not clearly identified. There also appears to be some a ir within the deep soft tissues of the pelvis bilaterally. 2. Air seen within the deep subcutaneous fat along the anterior abdominal wall and extending into th e left lateral and posterior mid abdomen in the subcutaneous fat. 3. This information was related to the Emergency Room. I was informed the patient had laparoscopic surgery recently. That is likely the source of the air. 4. 6.6 cm mass in the pelvis. This is nonspecific. This could be secondary to a prominent uterus o r prominent cervix. A hematoma could have a similar appearance. It is nonspecific. The patient ziggy arently has a history of cervical carcinoma. Moris Glasgow MD on October 11, 2016 at 18:03 Board Certified Radiologist. This report was verified electronically.
[2016-10-11] MEDS ORDERED: cefTRIAXone INJ 1,000 MG in SODIUM CHLORIDE 0.9% INJ 100 ML IV ONE (18:45)
[2016-10-11] MEDS ORDERED: HYDROmorphone HCL PF 1 MG/ML VIAL IV PUSH ONE (18:45)
[2016-10-11 19:10] VITALS: BP 109/71; PULSE 84; RESP 18; O2SAT 96
[2016-10-11] MEDS ORDERED: CIPR-9 PO (19:15)
[2016-10-11] MEDS ORDERED: HYDR2TAB PO (19:15)
[2016-10-11] MEDS ORDERED: HYDROmorphone HCL 2 MG TAB PO ONE (19:30)
[2016-10-11 19:59] VITALS: BP 109/71
--- NOTE | 2016-10-13 21:09 | EKG ---
Date Performed: 10/11/2016 Time Performed: 16:55:32 PTAGE: 26 years EKG: Sinus rhythm POSSIBLE RIGHT VENTRICULAR CONDUCTION DELAY SEPTAL MYOCARDIAL INFARCTION ABNORMAL ECG NO PREVIOUS TRACING DOCTOR: Adán Earl Interpretating Date/Time 10/13/2016 21:09:01
[2016-11-19] MEDS ORDERED: AZO-95TA2 PO (08:36)
[2017-01-26] MEDS ORDERED: VESI5TAB PO (09:35)
== END 2016-10-11 20:06 | disposition home or self-care (01) ==
LOC: NEPC 16:01
DX: G89.18 Other acute postprocedural pain (principal); R10.84 Generalized abdominal pain; N39.0 Urinary tract infection, site not specified; R94.31 Abnormal electrocardiogram [ECG] [EKG]; Z72.0 Tobacco use; Z88.0 Allergy status to penicillin; Z88.1 Allergy status to other antibiotic agents; Z88.8 Allergy status to other drugs, medicaments and biological substances; Z85.41 Personal history of malignant neoplasm of cervix uteri
CPT/HCPCS: 71275; 74177; 80053; 81001; 83605; 83690; 84703; 85025; 85610; 85730; 87086; 93005; 96361; 96374; 96375; 96376; 99284; J0696; J1170; J2405; J7030; Q9967

== ENCOUNTER 2016-10-15 07:25 | Day surgery (SDC) | payer OTHER ==
[~2016-10-15] VITALS: Ht 157.5 cm; Wt 55.5 kg
[~2016-10-15 07:25] MED LIST changes: +CIPR-9 PO; +COLA100C3 PO; +HYDR2TAB PO; -TYLETAB34 PO
[2016-10-15 07:44] VITALS: BP 114/68; PULSE 107; RESP 20; TEMP 98.2; O2SAT 100
[2016-10-15] MEDS ORDERED: POVIDONE IODINE 5% (ANTISEPSIS KIT) 4 APPLICATIONS EACH NARE SCH (08:00)
[2016-10-15] MEDS ORDERED: CHLORHEXIDINE GLUCONATE 2 % 1 PACK (2 CLOTHS) TOPICAL SCH (08:00)
[2016-10-15] MEDS ORDERED: VANCOMYCIN 1000 MG/NS 250 ML - implanted port/tunneled catheter IV SCH ×2 (08:00)
[2016-10-15] MEDS ORDERED: SODIUM CHLORIDE 0.9% 1000 ML IV SCH (08:00)
[2016-10-15 08:17] LABS: AUTOMATED NEUTROPHIL # 9.9 TH/MM3 (1.8-7.7); BASOPHIL # 0.1 TH/MM3 (0-0.2); EOSINOPHIL # 0.6 TH/MM3 (0-0.4); EOSINOPHIL % 4.2 % (0.0-4.0); HEMO FLAGS DIFF FINAL; LYMPH % 12.8 % (9.0-44.0); LYMPHOCYTE # 1.8 TH/MM3 (1.0-4.8); MEAN CELL VOLUME 79.5 FL (80.0-100.0); MEAN CORPUSCULAR HEMOGLOBIN 26.9 PG (27.0-34.0); MEAN CORPUSCULAR HGB CONC 33.8 % (32.0-36.0); MONO % 10.8 % (0.0-8.0); NEUT % 71.2 % (16.0-70.0); PLATELET COUNT 562 TH/MM3 (150-450); RED BLOOD COUNT 3.52 MIL/MM3 (4.00-5.30); RED CELL DISTRIBUTION WIDTH 14.4 % (11.6-17.2); WHITE BLOOD COUNT 13.9 TH/MM3 (4.0-11.0)
[2016-10-15] MEDS ORDERED: fentaNYL CITRATE 250 MCG/5 ML AMP ONE (08:55)
[2016-10-15] MEDS ORDERED: MIDAZOLAM HCL 5 MG/5 ML VIAL ONE (08:55)
[2016-10-15] MEDS ORDERED: LIDOCAINE 1%/EPINEPHrine 1:100,000 SOLN 20 ML VIAL ONE (09:15)
--- NOTE | 2016-10-15 09:48 | PD.RAD ---
Post Procedure Progress Note Pre Procedure Diagnosis: (1) Vaginal bleeding Post Procedure Diagnosis: (1) Vaginal bleeding Procedure Date: Oct 15, 2016 Supervising Radiologist: Hong High Anesthesia: Local, Conscious Sedation Plan of Activity Patient to Unit: ROPU Patient Condition: Good Additional Comments: Port placed via the right subclavian. Catheter in good position OK for use See PACS Report for procedural detail/treatment Hong High MD Oct 15, 2016 09:48
[2016-10-15] MEDS ORDERED: SODIUM CHLORIDE 0.9% FLUSH 5 ML FLUSH IVF PRN (10:00)
[2016-10-15 10:15] VITALS: BP 112/64; PULSE 112; RESP 16; O2SAT 100
[2016-10-15 10:45] VITALS: BP 108/63; PULSE 109; RESP 18; O2SAT 100
[2016-10-15 11:15] VITALS: BP 108/63; PULSE 108; RESP 18; O2SAT 100
--- NOTE | 2016-10-16 09:56 | RADRPT ---
EXAM DATE/TIME: 10/15/2016 08:56 [facility] COMPARISON: No previous studies available for comparison. INDICATIONS : Ovarian cancer.port placment for chemo. MEDICAL HISTORY : 1. Asthma 2. Anxiety 3. ADHD 4. Anemia 5. Migraines SURGICAL HISTORY : 1.[facility] bx 2. Ovarian transpostion ENCOUNTER: Initial ACUITY: 2 months PAIN SCORE: 2/10 LOCATION: abdomin. FLUORO TIME: 1.1 minutes SEDATION TIME: 30 minutes ACCESS: Right subclavian vein SEDATION: 1.) 5 mg midazolam (Versed) IV 2.) 250 mcg fentanyl (Sublimaze) IV Prophylactic antibiotics were administered with appropriate pre-procedure timing. Vancomycin within 2 hours of procedure, Ancef (or alternative) within 1 hour of procedure. DEVICE: 1. 8 [place] single lumen Bard Power Port PROCEDURE : 1. Continuous pulse oximetry and EKG monitoring. 2. Intravenous conscious sedation. 3. Ultrasound guidance for venous access. 4. Fluoroscopic guided implantable central venous port placement. The risk, benefits and potential palpitations [id number] placement were discussed. Consent was obt ained. Due to the patient's small size and limited amount of subcutaneous tissue above the clavicle t he right subclavian vein was selected. The patient was placed supine. The neck was prepped in sterile fashion. Full sterile technique was used, including cap, mask, sterile gloves and gown, and a large sterile sheet. Hand hygiene and 2% chlorhexidine Betadine was utilized per protocol for cutaneous a ntisepsis with appropriate dry time for site. The skin and subcutaneous tissues were infiltrated wit h local anesthetic solution. Under direct ultrasound guidance the right subclavian vein was accessed. The ultrasound images depic ting access guidance were stored and saved to PACS for permanent record. A subcutaneous pocket was c reated using blunt dissection. The port was introduced to the pocket. The catheter tubing was fed t hrough a subcutaneous tunnel to the venotomy site. The catheter tubing was cut to a suitable length and then was introduced through a valved Peel-Away sheath and positioned with catheter tubing tip at the cavo-atrial junction level. The pocket incision was closed with subcuticular Vicryl suture. Neri ri-Strips were applied. The port was flushed and locked with heparin solution per protocol. Sterile dressing was applied to the site. The patient tolerated the procedure well. Conscious sedation was performed with the prescribed dosages and duration as above. The patient kae ated the procedure well and there were no complications. EKG and oximetry remained stable throughout the procedure. The patient was sent to post anesthesia recovery in stable condition. CONCLUSION: Uncomplicated ultrasound and fluoroscopic guided implanted central venous port catheter placement as described in detail above. An 8 [place] Power port was placed. Hong High MD on October 16, 2016 at 9:53 Board Certified Radiologist. This report was verified electronically.
[2016-11-19] MEDS ORDERED: AZO-95TA2 PO (08:36)
[2017-01-26] MEDS ORDERED: VESI5TAB PO (09:35)
== END 2016-10-15 11:35 | disposition home or self-care (01) ==
LOC: HROP 07:25 → HRIP 07:26 → HROP 11:35
PROVIDERS: ATTEND Obstetrics & Gynecology Gynecologic Oncology
DX: Z45.2 Encounter for adjustment and management of vascular access device (principal); C53.9 Malignant neoplasm of cervix uteri, unspecified; J45.909 Unspecified asthma, uncomplicated; F90.9 Attention-deficit hyperactivity disorder, unspecified type
CPT/HCPCS: 36561; 76937; 77001; 85025; 99152; 99153; C1788; J1642; J2250; J3010; J3370; J7030; J7050

== ENCOUNTER 2016-11-02 19:05 | Emergency (ER) | payer OTHER ==
[~2016-11-02] VITALS: Ht 157.5 cm; Wt 53.0 kg
[2016-11-02 19:08] VITALS: BP 110/59; PULSE 112; RESP 16; TEMP 98.7; O2SAT 100
[2016-11-02] MEDS ORDERED: SODIUM CHLOR 0.9% 1000 ML INJ 1,000 ML IV SCH ×2 (19:47)
--- NOTE | 2016-11-02 19:52 | PD ---
HPI Chief Complaint: Fever Time Seen by Provider: 19:45 Travel History International Travel<30 days: No Contact w/Intl Traveler<30days: No Traveled to known affect area: No History of Present Illness HPI This is a 26-year-old female with history of cervical cancer with recent chemotherapy 2 days ago, oncologist Dr. Chari Waldron, presents for evaluation of fever. Symptoms started this morning. She has had a low-grade temperature of 100.5 along with myalgias, chills. She does endorse 2 episodes of diarrhea this morning but none since then. She also notes chronic pelvic pain with somewhat worsened pain in the right lower quadrant today. She is also receiving daily radiation therapy to the pelvis. She took Zofran this morning to help prevent nausea. She denies any vomiting, cough or congestion, sore throat, rash. She has no other complaints at this time. PFSH Past Medical History ADD: Yes Anemia: Yes Anxiety: Yes Cancer: Yes (CERVICAL CA) Cardiovascular Problems: No Diabetes: No Diminished Hearing: No Endocrine: No Genitourinary: No Hepatitis: No Hiatal Hernia: No Immune Disorder: No Musculoskeletal: No Neurologic: No Psychiatric: Yes (ANXIETY) Reproductive: Yes Respiratory: Yes (STRESS ASTHMA) Immunizations Current: No Thyroid Disease: No ?: Not Past Surgical History Abdominal Surgery: No AICD: No Cardiac Surgery: No Ear Surgery: No Endocrine Surgery: No Eye Surgery: No Genitourinary Surgery: No Gynecologic Surgery: Yes (CONE BIOPSY, OVARIAN TRANSPOSITION) Joint Replacement: No Oral Surgery: No Pacemaker: No Thoracic Surgery: No Other Surgery: Yes (PORT PLACEMENT) Social History Alcohol Use: No Tobacco Use: No Substance Use: No Allergies-Medications (Allergen,Severity, Reaction): Coded Allergies: Tramadol (Verified Allergy, Severe, Hives, 11/02/16) Amoxicillin (Verified Allergy, Unknown, 11/02/16) Penicillin (Verified Allergy, Unknown, 11/02/16) Reported Meds & Prescriptions Reported Meds & Active Scripts Active Cipro (Ciprofloxacin HCl) 500 Mg Tab 500 Mg PO BID Hydromorphone (Hydromorphone HCl) 2 Mg Tab 2 Mg PO Q4H PRN Oxycodone-Acetaminophen 5-325 mg Tab 1 Tab PO Q4H PRN Reported Colace (Docusate Sodium) 100 Mg Cap 100 Mg PO BID PRN Gas Relief Extra Strength (Simethicone) 125 Mg Cap 1 Tab PO Q8HR PRN Zofran (Ondansetron HCl) 8 Mg Tab 8 Mg PO TID Feosol (Ferrous Sulfate) 65 Mg Tab 65 Mg PO DAILY Claritin (Loratadine) 10 Mg Tab 10 Mg PO DAILY Cranberry (Cranberry (Vaccinium Macrocarpon)) 125 Mg Tab 1 Tab PO DAILY Biotin 1 Mg Cap 1 Mg PO DAILY Super B-Complex (B-Complex W/Biotin & Folic Acid) 1 Cap 1 Cap PO DAILY Alprazolam 1 Mg Tab 1 Mg PO Q6H PRN Proventil Hfa 6.7 GM Inh (Albuterol Sulfate) 90 Mcg/Act Aer 2 Puff INH Q6H PRN Adderall (Amphetamine-Dextroamphetamine) 30 Mg Tab 30 Mg PO TID Avoid late evening doses. Space doses at least 4 to 6 hours if more than once/day dosing. Review of Systems Except as stated in HPI: all other systems reviewed are Neg Physical Exam Narrative GENERAL: Well-developed well-nourished female in no acute distress SKIN: Warm and dry. HEAD: Atraumatic. Normocephalic. EYES: Pupils equal and round. No scleral icterus. No injection or drainage. ENT: No nasal bleeding or discharge. Mucous membranes pink and moist. NECK: Trachea midline. No JVD. No lymphadenopathy. Neck supple full range of motion. CARDIOVASCULAR: Regular rate and rhythm. No murmur appreciated. RESPIRATORY: No accessory muscle use. Clear to auscultation. Breath sounds equal bilaterally. GASTROINTESTINAL: Abdomen soft, mild right lower quadrant tenderness without guarding. MUSCULOSKELETAL: No obvious deformities. No edema. NEUROLOGICAL: Awake and alert. No obvious cranial nerve deficits. Motor grossly within normal limits. Normal speech. Data Data Last Documented VS Vital Signs Date Time Temp Pulse Resp B/P Pulse Ox O2 Delivery O2 Flow Rate FiO2 11/02/16 20:30 98.6 103 16 102/62 100 Room Air Orders Complete Blood Count With Diff (11/02/16 19:47) Comprehensive Metabolic Panel (11/02/16 19:47) Prothrombin Time / Inr (Pt) (11/02/16 19:47) Act Partial Throm Time (Ptt) (11/02/16 19:47) Lactic Acid Sepsis Protocol (11/02/16 19:47) Lipase (11/02/16 19:47) Urinalysis - C+S If Indicated (11/02/16 19:47) Influenzae A/B Antigen (11/02/16 19:47) Blood Culture (11/02/16 19:47) Chest, Single Ap (11/02/16 19:47) Blood Glucose (11/02/16 19:47) Ecg Monitoring (11/02/16 19:47) Iv Access Insert/Monitor (11/02/16 19:47) Oximetry (11/02/16 19:47) Oxygen Administration (11/02/16 19:47) Sodium Chlor 0.9% 1000 Ml Inj (Ns 1000 M (11/02/16 19:47) Sodium Chlor 0.9% 1000 Ml Inj (Ns 1000 M (11/02/16 19:47) Acetaminophen (Tylenol) (11/02/16 20:00) Ct Abd/Pel W Iv Contrast(Rout) (11/02/16 19:52) Alprazolam (Xanax) (11/02/16 20:30) Potassium Chloride (Kcl) (11/02/16 21:00) Morphine Inj (Morphine Inj) (11/02/16 21:30) Iohexol 350 Inj (Omnipaque 350 Inj) (11/02/16 22:02) Labs Laboratory Tests Test 11/02/16 11/02/16 20:10 20:15 White Blood Count 11.8 TH/MM3 Red Blood Count 3.15 MIL/MM3 Hemoglobin 8.3 GM/DL Hematocrit 24.8 % Mean Corpuscular Volume 78.7 FL Mean Corpuscular Hemoglobin 26.5 PG Mean Corpuscular Hemoglobin 33.7 % Concent Red Cell Distribution Width 14.9 % Platelet Count 298 TH/MM3 Mean Platelet Volume 6.8 FL Neutrophils (%) (Auto) 81.3 % Lymphocytes (%) (Auto) 4.5 % Monocytes (%) (Auto) 8.4 % Eosinophils (%) (Auto) 5.6 % Basophils (%) (Auto) 0.2 % Neutrophils # (Auto) 9.6 TH/MM3 Lymphocytes # (Auto) 0.5 TH/MM3 Monocytes # (Auto) 1.0 TH/MM3 Eosinophils # (Auto) 0.7 TH/MM3 Basophils # (Auto) 0.0 TH/MM3 CBC Comment DIFF FINAL Differential Comment Prothrombin Time 11.8 SEC Prothromb Time International 1.1 RATIO Ratio Activated Partial 35.0 SEC Thromboplast Time Urine Color YELLOW Urine Turbidity CLEAR Urine pH 6.0 Urine Specific [place] 1.012 Urine Protein NEG mg/dL Urine Glucose (UA) NEG mg/dL Urine Ketones NEG mg/dL Urine Occult Blood NEG Urine Nitrite NEG Urine Bilirubin NEG Urine Urobilinogen LESS THAN 2.0 MG/DL Urine Leukocyte Esterase SMALL Urine RBC 1 /hpf Urine WBC 2 /hpf Urine Squamous Epithelial <1 /hpf Cells Urine Bacteria /hpf Microscopic Urinalysis Comment CATH-CULT NOT IND Sodium Level 134 MEQ/L Potassium Level 3.2 MEQ/L Chloride Level 98 MEQ/L Carbon Dioxide Level 28.3 MEQ/L Anion Gap 8 MEQ/L Blood Urea Nitrogen 12 MG/DL Creatinine 0.50 MG/DL Estimat Glomerular Filtration 147 ML/MIN Rate Random Glucose 95 MG/DL Calcium Level 8.3 MG/DL Total Bilirubin 0.3 MG/DL Aspartate Amino Transf 5 U/L (AST/SGOT) Alanine Aminotransferase 15 U/L (ALT/SGPT) Alkaline Phosphatase 67 U/L Total Protein 6.7 GM/DL Albumin 2.6 GM/DL Lipase 71 U/L Lactic Acid Level 0.8 mmol/L MDM Medical Decision Making Medical Screen Exam Complete: Yes Emergency Medical Condition: Yes Medical Record Reviewed: Yes Interpretation(s) CT abdomen and pelvis CONCLUSION: 1. Enlarged cervix to 6.3 cm, similar to October 11 exam. Reportedly there is a history of cervical cancer. Previous free air has resolved. No free fluid or bowel obstruction. No new findings on the current exam. CBC WBC 11.8, 81.3% neutrophils, hemoglobin 8.3 CMP sodium 134, potassium 3.2, calcium 8.3, albumin 2.6 Lactic acid 0.8 Urinalysis small leukocyte otherwise unremarkable Differential Diagnosis Neutropenic fever, pneumonia, influenza, appendicitis, intra-abdominal abscess, colitis, meningitis Narrative Course 26-year-old female with history of cervical cancer chemotherapy 3 days ago presents with low-grade fever started today, worsened pain in the right lower abdomen. Plan is for basic lab work, CT abdomen and pelvis, chest x-ray. The patient was given Tylenol, small dose of morphine, 2 L of normal saline. D/W my attending who is agreeable with plan of care. The patient's lab work has been reviewed and are imaging studies have been reviewed. Imaging studies reveal no acute abnormalities. Urinalysis is negative for infection. Influenza is negative. The patient does feel improved after the administration of fluids. Potassium mildly low and she was given oral potassium chloride supplementation. I discussed her lab work and her symptoms with her oncologist Dr. Waldron who is comfortable with the patient going home with close follow-up. The plan is to have the patient follow up closely with Dr. Waldron and return for any new or worsening symptoms. Blood cultures are pending and the patient will certainly be called if they become positive. The patient is stable for discharge. Diagnosis Primary Impression: Fever Qualified Code: R50.9 - Fever, unspecified fever cause Referrals: Chari Waldron MD Additional Instructions: Follow-up with Dr. Waldron. Stay well hydrated and well-nourished. Take Tylenol or Motrin for discomfort. If you develop any new or worsening symptoms return to the emergency room. Med/Other Pt SpecificInfo: No Change to Meds Disposition: 01 DISCHARGE HOME Condition: Stable John Kelsey Nov 02, 2016 19:52
[2016-11-02] MEDS ORDERED: ACETAMINOPHEN 500 MG CPLT PO ONE (20:00)
[2016-11-02 20:30] VITALS: BP 102/62; PULSE 103; RESP 16; TEMP 98.6; O2SAT 100
[2016-11-02] MEDS ORDERED: ALPRAZolam 0.5 MG TAB PO ONE (20:30)
--- NOTE | 2016-11-02 20:34 | RADRPT ---
EXAM DATE/TIME: 11/02/2016 20:00 [facility] COMPARISON: No previous studies available for comparison. INDICATIONS : Fever MEDICAL HISTORY : Asthma, Ovarian cancer SURGICAL HISTORY : Infusaport, bone bx ENCOUNTER: Initial ACUITY: 1 day PAIN SCORE: 0/10 LOCATION: Bilateral chest FINDINGS: A single view of the chest demonstrates [id number] in superior vena cava. No focal consolidation o r significant effusion. No pneumothorax. Heart size normal. CONCLUSION: 1. [id number] tip in superior vena cava. No focal consolidation or significant effusion. Jose Conrad MD on November 02, 2016 at 20:31 Board Certified Radiologist. This report was verified electronically.
[2016-11-02 20:39] LABS: AUTOMATED NEUTROPHIL # 9.6 TH/MM3 (1.8-7.7); BASOPHIL % 0.2 % (0.0-2.0); EOSINOPHIL # 0.7 TH/MM3 (0-0.4); EOSINOPHIL % 5.6 % (0.0-4.0); HEMATOCRIT 24.8 % (35.0-46.0); HEMO FLAGS DIFF FINAL; LYMPH % 4.5 % (9.0-44.0); LYMPHOCYTE # 0.5 TH/MM3 (1.0-4.8); MEAN CELL VOLUME 78.7 FL (80.0-100.0); MEAN CORPUSCULAR HEMOGLOBIN 26.5 PG (27.0-34.0); MEAN CORPUSCULAR HGB CONC 33.7 % (32.0-36.0); MONO % 8.4 % (0.0-8.0); NEUT % 81.3 % (16.0-70.0); PLATELET COUNT 298 TH/MM3 (150-450); RED BLOOD COUNT 3.15 MIL/MM3 (4.00-5.30); RED CELL DISTRIBUTION WIDTH 14.9 % (11.6-17.2); WHITE BLOOD COUNT 11.8 TH/MM3 (4.0-11.0)
[2016-11-02 20:44] LABS: BLOOD, URINE NEG (NEG); COMMENT (UR) CATH-CULT NOT IND; CULTURE IF INDICATED CATH CULTURE NOT IND; GLUCOSE,URINE NEG (NEG); KETONE, URINE NEG (NEG); NITRITE,URINE NEG (NEG); SQUAMOUS EPITHELIAL CELL URINE <1 /hpf (0-5); URINE COLOR YELLOW (YELLW/STRAW)
--- NOTE | 2016-11-02 20:49 | PD ---
Data Data Last Documented VS Vital Signs Date Time Temp Pulse Resp B/P Pulse Ox O2 Delivery O2 Flow Rate FiO2 11/02/16 20:30 98.6 103 16 102/62 100 Room Air Orders Complete Blood Count With Diff (11/02/16 19:47) Comprehensive Metabolic Panel (11/02/16 19:47) Prothrombin Time / Inr (Pt) (11/02/16 19:47) Act Partial Throm Time (Ptt) (11/02/16 19:47) Lactic Acid Sepsis Protocol (11/02/16:47) Lipase (11/02/16 19:47) Urinalysis - C+S If Indicated (11/02/16 19:47) Influenzae A/B Antigen (11/02/16:47) Blood Culture (11/02/16:47) Chest, Single Ap (11/02/16 19:47) Blood Glucose (11/02/16 19:47) Ecg Monitoring (11/02/16 19:47) Iv Access Insert/Monitor (11/02/16:47) Oximetry (11/02/16 19:47) Oxygen Administration (11/02/16 19:47) Sodium Chlor 0.9% 1000 Ml Inj (Ns 1000 M (11/02/16 19:47) Sodium Chlor 0.9% 1000 Ml Inj (Ns 1000 M (11/02/16 19:47) Acetaminophen (Tylenol) (11/02/16 20:00) Ct Abd/Pel W Iv Contrast(Rout) (11/02/16 19:52) Alprazolam (Xanax) (11/02/16 20:30) Potassium Chloride (Kcl) (11/02/16 21:00) Morphine Inj (Morphine Inj) (11/02/16 21:30) Iohexol 350 Inj (Omnipaque 350 Inj) (11/02/16 22:02) Heparin Central Flush (Heparin Central F (11/02/16 22:45) Labs Laboratory Tests Test 11/02/16 11/02/16 20:10 20:15 White Blood Count 11.8 TH/MM3 Red Blood Count 3.15 MIL/MM3 Hemoglobin 8.3 GM/DL Hematocrit 24.8 % Mean Corpuscular Volume 78.7 FL Mean Corpuscular Hemoglobin 26.5 PG Mean Corpuscular Hemoglobin 33.7 % Concent Red Cell Distribution Width 14.9 % Platelet Count 298 TH/MM3 Mean Platelet Volume 6.8 FL Neutrophils (%) (Auto) 81.3 % Lymphocytes (%) (Auto) 4.5 % Monocytes (%) (Auto) 8.4 % Eosinophils (%) (Auto) 5.6 % Basophils (%) (Auto) 0.2 % Neutrophils # (Auto) 9.6 TH/MM3 Lymphocytes # (Auto) 0.5 TH/MM3 Monocytes # (Auto) 1.0 TH/MM3 Eosinophils # (Auto) 0.7 TH/MM3 Basophils # (Auto) 0.0 TH/MM3 CBC Comment DIFF FINAL Differential Comment Prothrombin Time 11.8 SEC Prothromb Time International 1.1 RATIO Ratio Activated Partial 35.0 SEC Thromboplast Time Urine Color YELLOW Urine Turbidity CLEAR Urine pH 6.0 Urine Specific [place] 1.012 Urine Protein NEG mg/dL Urine Glucose (UA) NEG mg/dL Urine Ketones NEG mg/dL Urine Occult Blood NEG Urine Nitrite NEG Urine Bilirubin NEG Urine Urobilinogen LESS THAN 2.0 MG/DL Urine Leukocyte Esterase SMALL Urine RBC 1 /hpf Urine WBC 2 /hpf Urine Squamous Epithelial <1 /hpf Cells Urine Bacteria /hpf Microscopic Urinalysis Comment CATH-CULT NOT IND Sodium Level 134 MEQ/L Potassium Level 3.2 MEQ/L Chloride Level 98 MEQ/L Carbon Dioxide Level 28.3 MEQ/L Anion Gap 8 MEQ/L Blood Urea Nitrogen 12 MG/DL Creatinine 0.50 MG/DL Estimat Glomerular Filtration 147 ML/MIN Rate Random Glucose 95 MG/DL Calcium Level 8.3 MG/DL Total Bilirubin 0.3 MG/DL Aspartate Amino Transf 5 U/L (AST/SGOT) Alanine Aminotransferase 15 U/L (ALT/SGPT) Alkaline Phosphatase 67 U/L Total Protein 6.7 GM/DL Albumin 2.6 GM/DL Lipase 71 U/L Lactic Acid Level 0.8 mmol/L MDM Supervised Visit with NICHOLE: Yes Narrative Course Patient seen and examined by me in addition to John Kelsey PAC. Patient appears well and in nad. No fever in ED. No obvious source. CT abdomen is being pursued as well as basic labs. Ultimately will be discussed with Dr. Waldron but i anticipate discharge. Jesse Byrd MD Nov 02, 2016 20:49
[2016-11-02 20:51] LABS: ANION GAP 8 MEQ/L (5-15); AST (GOT) 5 U/L (15-37); BICARBONATE 28.3 MEQ/L (21.0-32.0); BLOOD UREA NITROGEN 12 MG/DL (7-18); CHLORIDE 98 MEQ/L (98-107); GLOMERULAR FILTRATION RATE 147 ML/MIN (>89); POTASSIUM 3.2 MEQ/L (3.5-5.1); SODIUM (NA) 134 MEQ/L (136-145)
[2016-11-02 20:55] LABS: ALKALINE PHOSPHATASE 67 U/L (45-117); ALT (GPT) 15 U/L (10-53); TOTAL BILIRUBIN ADULT 0.3 MG/DL (0.2-1.0)
[2016-11-02 20:57] LABS: INTERNATIONAL NORMALIZED RATIO 1.1 RATIO; PROTHROMBIN TIME - PATIENT 11.8 SEC (9.8-11.6)
[2016-11-02] MEDS ORDERED: POTASSIUM CHLORIDE 20 MEQ CONTROLLED RELEASE TAB PO ONE (21:00)
[2016-11-02] MEDS ORDERED: MORPHINE SULFATE 4 MG/ML INJ IV PUSH ONE (21:30)
[2016-11-02] MEDS ORDERED: IOHEXOL 350 MG/ML 10 ML VIAL (for RAD DIAG) IV ONE (22:02)
--- NOTE | 2016-11-02 22:21 | RADRPT ---
EXAM DATE/TIME: 11/02/2016 21:57 [place] COMPARISON: CT ABDOMEN & PELVIS W CONTRAST, October 11, 2016, 17:40. INDICATIONS : Fever; history of cervical cancer. IV CONTRAST: 85 cc Omnipaque 350 (iohexol) IV ORAL CONTRAST: No oral contrast ingested. RADIATION DOSE: 5.03 CTDIvol (mGy) MEDICAL HISTORY : Carcinoma, ovarian. asthma SURGICAL HISTORY : None. ENCOUNTER: Initial ACUITY: 1 day PAIN SCALE: 5/10 LOCATION: abdomen TECHNIQUE: Volumetric scanning of the abdomen and pelvis was performed. Using automated exposure control and ad justment of the mA and/or kV according to patient size, radiation dose was kept as low as reasonably achievable to obtain optimal diagnostic quality images. FINDINGS: Lung bases are clear. No significant abnormality in the liver, spleen, adrenals, kidneys or pancreas. Previous free intraperitoneal air seen on October 11 has resolved. There is a 6.3 cm pelvic mass prob ably related to reported history of cervical cancer. This is similar in size and appearance to Januar 21. No bowel obstruction. No free fluid. Bladder is mildly distended. No acute bony abnormalities. CONCLUSION: 1. Enlarged cervix to 6.3 cm, similar to October 11 exam. Reportedly there is a history of cervical c ancer. Previous free air has resolved. No free fluid or bowel obstruction. No new findings on the [facility] exam. Jose Conrad MD on November 02, 2016 at 22:15 Board Certified Radiologist. This report was verified electronically.
[2016-11-19] MEDS ORDERED: AZO-95TA2 PO (08:36)
[2017-01-26] MEDS ORDERED: VESI5TAB PO (09:35)
== END 2016-11-02 23:01 | disposition home or self-care (01) ==
LOC: NEPC 19:05
DX: C53.9 Malignant neoplasm of cervix uteri, unspecified (principal); R50.9 Fever, unspecified; R10.2 Pelvic and perineal pain; G89.29 Other chronic pain
CPT/HCPCS: 71010; 74177; 80053; 81001; 83605; 83690; 85025; 85610; 85730; 87040; 87804; 96374; 99284; J2270; J7030; Q9967

== ENCOUNTER 2016-11-20 19:34 | Emergency (ER) | payer OTHER ==
[~2016-11-20] VITALS: Ht 157.5 cm; Wt 52.0 kg
[~2016-11-20 19:34] MED LIST changes: +AZO-95TA2 PO
[2016-11-20 19:36] VITALS: BP 144/83; PULSE 107; RESP 20; TEMP 98.1; O2SAT 96
--- NOTE | 2016-11-20 19:55 | PD ---
HPI Chief Complaint: Complaint Time Seen by Provider: 19:55 Travel History International Travel<30 days: No Contact w/Intl Traveler<30days: No Traveled to known affect area: No History of Present Illness HPI 26-year-old female came to the emergency room with history of urinary retention. Patient has history of cervical cancer and going through radiation currently. She was at her GYNs office to get an internal radiation seed implanted. They were unable to do it because there was still tumor growth. She went home and since then she has developed urinary retention. Her last urine output was at 10 AM. She was in significant distress and anxiety because of this. However just before I went to see her she was in the bathroom and came out with her mother saying that she urinated quite a bit. They brought a urine cup full of urine which looked blood tinged. Patient says she feels a little bit better but still has some discomfort in the suprapubic area. No history of fever or chills. She understands that this is part of the complication from the radiation that she is getting. This was mentioned to her before beginning the radiation. [facility] Past Medical History Narrative Medical List of her past medical, surgical, social and family history is reviewed from the nursing note. ADD: Yes Anemia: Yes Anxiety: Yes Cancer: Yes (CERVICAL CA) Cardiovascular Problems: No Chemotherapy: Yes (CERVICAL CANCER) Diabetes: No Diminished Hearing: No Endocrine: No Genitourinary: No Hepatitis: No Hiatal Hernia: No Immune Disorder: No Musculoskeletal: No Neurologic: No Psychiatric: Yes (ANXIETY) Reproductive: Yes Respiratory: Yes (STRESS ASTHMA) Immunizations Current: No Thyroid Disease: No ?: Not Past Surgical History Abdominal Surgery: No AICD: No Cardiac Surgery: No Ear Surgery: No Endocrine Surgery: No Eye Surgery: No Genitourinary Surgery: No Gynecologic Surgery: Yes (CONE BIOPSY, OVARIAN TRANSPOSITION, BILATERAL SALPINGECTOMY) Joint Replacement: No Oral Surgery: No Pacemaker: No Thoracic Surgery: No Other Surgery: Yes (PORT PLACEMENT) Social History Alcohol Use: No Tobacco Use: No Substance Use: No Allergies-Medications (Allergen,Severity, Reaction): Coded Allergies: Tramadol (Verified Allergy, Severe, Hives, 11/23/16) Amoxicillin (Verified Allergy, Unknown, 11/23/16) Penicillin (Verified Allergy, Unknown, 11/23/16) Comments List of her allergies reviewed from the nursing note. Reported Meds & Prescriptions Reported Meds & Active Scripts Active Ditropan (Oxybutynin Chloride) 5 Mg Tab 5 Mg PO Q8HR Macrobid (Nitrofurantoin Monoh/Nitrofur Macro) 100 Mg Cap 100 Mg PO BID 10 Days Oxycodone-Acetaminophen 5-325 mg Tab 1 Tab PO Q4H PRN Reported Airborne (Multiple Vitamins W/ Minerals) 1 Sarah 1 Lozenge BUCCAL DAILY Ascorbic Acid 500 Mg Tab 500 Mg PO DAILY Pyridium (Phenazopyridine HCl) 200 Mg Tab 200 Mg PO TIDPC Colace (Docusate Sodium) 100 Mg Cap 100 Mg PO BID PRN Zofran (Ondansetron HCl) 8 Mg Tab 8 Mg PO TID Feosol (Ferrous Sulfate) 65 Mg Tab 65 Mg PO DAILY Claritin (Loratadine) 10 Mg Tab 10 Mg PO DAILY Cranberry (Cranberry (Vaccinium Macrocarpon)) 125 Mg Tab 1 Tab PO DAILY Biotin 1 Mg Cap 1 Mg PO DAILY Super B-Complex (B-Complex W/Biotin & Folic Acid) 1 Cap 1 Cap PO DAILY Alprazolam 1 Mg Tab 1 Mg PO Q6H PRN Proventil Hfa 6.7 GM Inh (Albuterol Sulfate) 90 Mcg/Act Aer 2 Puff INH Q6H PRN Adderall (Amphetamine-Dextroamphetamine) 30 Mg Tab 30 Mg PO TID Avoid late evening doses. Space doses at least 4 to 6 hours if more than once/day dosing. Narrative Medication List of her home medications reviewed from the nursing note. Review of Systems Except as stated in HPI: all other systems reviewed are Neg Physical Exam Narrative GENERAL: Awake, alert, anxious, moderate distress SKIN: Warm and dry. HEAD: Atraumatic. Normocephalic. EYES: Pupils equal and round. No scleral icterus. No injection or drainage. ENT: No nasal bleeding or discharge. Mucous membranes pink and moist. NECK: Trachea midline. No JVD. CARDIOVASCULAR: Regular rate and rhythm. No murmur appreciated. RESPIRATORY: No accessory muscle use. Clear to auscultation. Breath sounds equal bilaterally. GASTROINTESTINAL: Abdomen soft, non-tender, nondistended. Hepatic and splenic margins not palpable. MUSCULOSKELETAL: No obvious deformities. No clubbing. No cyanosis. No edema. NEUROLOGICAL: Awake and alert. No obvious cranial nerve deficits. Motor grossly within normal limits. Normal speech. PSYCHIATRIC: Appropriate mood and affect; insight and judgment normal. Data Data Last Documented VS Vital Signs Date Time Temp Pulse Resp B/P Pulse Ox O2 Delivery O2 Flow Rate FiO2 11/20/16 19:36 98.1 107 20 144/83 96 Nasal Cannula Orders Urinalysis - C+S If Indicated (11/20/16 20:05) Urinary Catheter Insert/Apply (11/20/16 20:05) Urine Culture (11/20/16 19:58) Complete Blood Count With Diff (11/20/16 20:34) Comprehensive Metabolic Panel (11/20/16 20:34) Lactic Acid Sepsis Protocol (11/20/16 20:34) Blood Culture (11/20/16 20:34) Ecg Monitoring (11/20/16 20:34) Iv Access Insert/Monitor (11/20/16 20:34) Oximetry (11/20/16 20:34) Oxygen Administration (11/20/16 20:34) Ceftriaxone Inj (Rocephin Inj) (11/20/16 20:45) Nitrofurantoin Monohyd Macrocr (Macrobid (11/20/16 20:45) Alprazolam (Xanax) (11/20/16 23:00) Oxycodone-Acetamin 5-325 Mg (Percocet (11/20/16 23:00) Heparin Central Flush (Heparin Central F (11/20/16 23:15) Labs Laboratory Tests Test 11/20/16 11/20/16 19:58 21:15 Urine Color DARK-BROWN Urine Turbidity CLEAR Urine pH 6.0 Urine Specific [place] 1.006 Urine Protein TRACE mg/dL Urine Glucose (UA) NEG mg/dL Urine Ketones NEG mg/dL Urine Occult Blood MOD Urine Nitrite POS Urine Bilirubin NEG Urine Urobilinogen LESS THAN 2.0 MG/DL Urine Leukocyte Esterase NEG Urine RBC /hpf Urine WBC 5 /hpf Urine Bacteria FEW /hpf Microscopic Urinalysis Comment CULTURE INDICATED White Blood Count 6.9 TH/MM3 Red Blood Count 3.42 MIL/MM3 Hemoglobin 9.4 GM/DL Hematocrit 28.2 % Mean Corpuscular Volume 82.6 FL Mean Corpuscular Hemoglobin 27.5 PG Mean Corpuscular Hemoglobin 33.3 % Concent Red Cell Distribution Width 17.4 % Platelet Count 231 TH/MM3 Mean Platelet Volume 6.7 FL Neutrophils (%) (Auto) 76.9 % Lymphocytes (%) (Auto) 3.4 % Monocytes (%) (Auto) 7.6 % Eosinophils (%) (Auto) 11.8 % Basophils (%) (Auto) 0.3 % Neutrophils # (Auto) 5.3 TH/MM3 Lymphocytes # (Auto) 0.2 TH/MM3 Monocytes # (Auto) 0.5 TH/MM3 Eosinophils # (Auto) 0.8 TH/MM3 Basophils # (Auto) 0.0 TH/MM3 CBC Comment DIFF FINAL Differential Comment Sodium Level 139 MEQ/L Potassium Level 3.9 MEQ/L Chloride Level 103 MEQ/L Carbon Dioxide Level 29.3 MEQ/L Anion Gap 7 MEQ/L Blood Urea Nitrogen 13 MG/DL Creatinine 0.48 MG/DL Estimat Glomerular Filtration 154 ML/MIN Rate Random Glucose 88 MG/DL Lactic Acid Level 0.4 mmol/L Calcium Level 8.3 MG/DL Total Bilirubin 0.2 MG/DL Aspartate Amino Transf 10 U/L (AST/SGOT) Alanine Aminotransferase 15 U/L (ALT/SGPT) Alkaline Phosphatase 68 U/L Total Protein 6.5 GM/DL Albumin 2.7 GM/DL [facility] Medical Decision Making Medical Screen Exam Complete: Yes Emergency Medical Condition: Yes Medical Record Reviewed: Yes Differential Diagnosis Urethral sphincter spasm, urethral stricture from radiation, cystitis or UTI Narrative Course 8:31 PM I did a bedside sonogram to look for the bladder and the bladder seemed distended with significant amount of urine in it. I've asked the nurse to put a Hughes catheter in. I explained to the patient that once the Hughes catheter is inserted she will go home with a prescription and she will have to follow up with her [facility] as well as the urologist whose name and number will be provided to her when she is discharged. Patient didn't know that she had an appointment tomorrow morning with her [facility] specialist. She is comfortable with this plan. I also explained to her that there is a possibility that there is stricture from the radiation which could be causing the obstruction in which case the Hughes might be difficult to be put in. Awaiting for the UA. 9:10 PM urine analysis is back and suggestive of UTI. There is undergoing chemotherapy and radiation therapy. Given the possibility of immunosuppression from her treatment I have ordered blood work and IV Rocephin. If her blood work is within normal limits she will be discharged home on by mouth Macrobid. Patient has been informed about this and she understands. 9:50 PM the catheterization and patient has drained so far almost a liter of urine. It's blood-tinged. Patient looks very comfortable and she says she is feeling much better. She is eating cheeseburger at this point. Awaiting for the blood test result. 11:05 PM all the blood test results of back and within acceptable limits. She will be discharged home on Macrobid and the catheter with a leg bag.. Procedures Procedure Narrative Emergency Department Pelvic ultrasound was performed with patient consent. The curvilinear probe was used in the transverse and sagittal views within the suprapubic region revealing distended urinary bladder with significant amount of urine. Patient is in urinary retention. EKG Prior to Arrival: No Diagnosis Primary Impression: Urinary retention Additional Impression: UTI (urinary tract infection) Qualified Code: N39.0 - Urinary tract infection with hematuria, site unspecified Referrals: Jet Duggan DO 3 days Additional Instructions: Please keep the catheter in and care as explained to you by the nurse. Call the urologist whose name and number been given to you. He will decide when the catheter comes out. Follow-up with your [facility] as per the appointments. Take the medication as per the prescription direction. Med/Other Pt SpecificInfo: Prescription(s) given Scripts Nitrofurantoin Monohydrate Macrocrystals (Macrobid)100 Mg [id number] Mg PO BID 10 Days Ref 0 Prov:Jian Rodriguez MD 11/20/16 Disposition: DISCHARGE HOME Condition: Stable Jian Rodriguez MD Nov 20, 2016 19:55
[2016-11-20 20:30] LABS: BACTERIA, URINE FEW /hpf; BLOOD, URINE MOD (NEG); COMMENT (UR) CULTURE INDICATED; CULTURE IF INDICATED CULTURE INDICATED; GLUCOSE,URINE NEG (NEG); KETONE, URINE NEG (NEG); NITRITE,URINE POS (NEG); URINE COLOR DARK-BROWN (YELLW/STRAW)
[2016-11-20] MEDS ORDERED: cefTRIAXone INJ 1,000 MG in SODIUM CHLORIDE 0.9% INJ 100 ML IV ONE (20:45)
[2016-11-20] MEDS ORDERED: NITROFURANTOIN MONOHYD MACROCR 100 MG CAP PO ONE (20:45)
[2016-11-20] MEDS ORDERED: PYRI200T4 PO (20:58)
[2016-11-20] MEDS ORDERED: MULT1LOZ BUCCAL (20:59)
[2016-11-20] MEDS ORDERED: ASCO500T PO (20:59)
[2016-11-20 22:14] LABS: AUTOMATED NEUTROPHIL # 5.3 TH/MM3 (1.8-7.7); BASOPHIL % 0.3 % (0.0-2.0); EOSINOPHIL # 0.8 TH/MM3 (0-0.4); EOSINOPHIL % 11.8 % (0.0-4.0); HEMATOCRIT 28.2 % (35.0-46.0); HEMO FLAGS DIFF FINAL; LYMPH % 3.4 % (9.0-44.0); LYMPHOCYTE # 0.2 TH/MM3 (1.0-4.8); MEAN CELL VOLUME 82.6 FL (80.0-100.0); MEAN CORPUSCULAR HEMOGLOBIN 27.5 PG (27.0-34.0); MEAN CORPUSCULAR HGB CONC 33.3 % (32.0-36.0); MONO % 7.6 % (0.0-8.0); NEUT % 76.9 % (16.0-70.0); PLATELET COUNT 231 TH/MM3 (150-450); RED BLOOD COUNT 3.42 MIL/MM3 (4.00-5.30); RED CELL DISTRIBUTION WIDTH 17.4 % (11.6-17.2); WHITE BLOOD COUNT 6.9 TH/MM3 (4.0-11.0)
[2016-11-20 22:49] LABS: ANION GAP 7 MEQ/L (5-15); AST (GOT) 10 U/L (15-37); BICARBONATE 29.3 MEQ/L (21.0-32.0); BLOOD UREA NITROGEN 13 MG/DL (7-18); CHLORIDE 103 MEQ/L (98-107); GLOMERULAR FILTRATION RATE 154 ML/MIN (>89); POTASSIUM 3.9 MEQ/L (3.5-5.1); SODIUM (NA) 139 MEQ/L (136-145)
[2016-11-20 22:52] LABS: ALKALINE PHOSPHATASE 68 U/L (45-117); ALT (GPT) 15 U/L (10-53); TOTAL BILIRUBIN ADULT 0.2 MG/DL (0.2-1.0)
[2016-11-20] MEDS ORDERED: oxyCODONE/ACETAMINOPHEN 5 MG/325 MG TAB PO ONE (23:00)
[2016-11-20] MEDS ORDERED: ALPRAZolam 1 MG TAB PO ONE (23:00)
[2016-11-20] MEDS ORDERED: MACR100C2 PO (23:07)
[2017-01-26] MEDS ORDERED: VESI5TAB PO (09:35)
== END 2016-11-20 23:50 | disposition home or self-care (01) ==
LOC: NEPA 19:34
DX: N39.0 Urinary tract infection, site not specified (principal)
CPT/HCPCS: 51702; 80053; 81001; 83605; 85025; 87040; 87086; 96365; 99283; J0696; J1642

== ENCOUNTER 2016-11-23 17:31 | Emergency (ER) | payer OTHER ==
[~2016-11-23] VITALS: Ht 157.5 cm; Wt 55.0 kg
[~2016-11-23 17:31] MED LIST changes: +ASCO500T PO; -AZO-95TA2 PO; -CIPR-9 PO; -HYDR2TAB PO; +MACR100C2 PO; +MULT1LOZ BUCCAL; +PYRI200T4 PO; -[UNRECOGNIZED DRUG - CODE] PO
[2016-11-23 17:34] VITALS: BP 120/73; PULSE 84; RESP 17; TEMP 97.5; O2SAT 96
--- NOTE | 2016-11-23 18:10 | PD ---
HPI Chief Complaint: Complaint Time Seen by Provider: 18:00 Travel History International Travel<30 days: No Contact w/Intl Traveler<30days: No Traveled to known affect area: No History of Present Illness HPI Examined in the presence of a female nurse. This is a 26-year-old female who presents with her mother for evaluation of urinary retention. The patient has a history of cervical cancer, currently undergoing radiation therapy. For the past few weeks she has had difficulty with urination. She started developing worsening urinary retention over the course of the past 4 days. The patient was seen on November 20 for evaluation of this issue. A Hughes catheter was placed. She was placed on Macrobid because her urinalysis revealed positive nitrites and pyuria. The patient has been doing well, voiding into her Hughes bag. Today she has continued to void in her Hughes bag but she has noticed some blood clots in the bag and she has now developed a suprapubic pressure. She reports that it feels like she is retaining urine again. She is concerned that the Hughes catheter is not draining all of the urine. Just prior to my examination the patient reports that she sat down on the toilet and some urine came out here urethra around the Hughes catheter. No fevers, chills, flank pain. She has no other complaints at this time. She is taking the Macrobid as prescribed. [facility] Past Medical History ADD: Yes Anemia: Yes Anxiety: Yes Cancer: Yes (CERVICAL CA) Cardiovascular Problems: No Chemotherapy: Yes (CERVICAL CANCER) Diabetes: No Diminished Hearing: No Endocrine: No Gastrointestinal Disorders: No Genitourinary: No Hepatitis: No Hiatal Hernia: No Hypertension: No Immune Disorder: No Musculoskeletal: No Neurologic: No Psychiatric: Yes (ANXIETY) Reproductive: Yes Respiratory: Yes (STRESS ASTHMA) Immunizations Current: No Radiation Therapy: Yes Thyroid Disease: No ?: Not Past Surgical History Abdominal Surgery: No AICD: No Cardiac Surgery: No Ear Surgery: No Endocrine Surgery: No Eye Surgery: No Genitourinary Surgery: No Gynecologic Surgery: Yes (CONE BIOPSY, OVARIAN TRANSPOSITION, BILATERAL SALPINGECTOMY) Joint Replacement: No Neurologic Surgery: No Oral Surgery: No Pacemaker: No Thoracic Surgery: No Other Surgery: Yes (PORT PLACEMENT) Social History Alcohol Use: No Tobacco Use: No Substance Use: No Allergies-Medications (Allergen,Severity, Reaction): Coded Allergies: Tramadol (Verified Allergy, Severe, Hives, 11/23/16) Amoxicillin (Verified Allergy, Unknown, 11/23/16) Penicillin (Verified Allergy, Unknown, 11/23/16) Reported Meds & Prescriptions Reported Meds & Active Scripts Active Ditropan (Oxybutynin Chloride) 5 Mg Tab 5 Mg PO Q8HR Macrobid (Nitrofurantoin Monoh/Nitrofur Macro) 100 Mg Cap 100 Mg PO BID 10 Days Oxycodone-Acetaminophen 5-325 mg Tab 1 Tab PO Q4H PRN Reported Airborne (Multiple Vitamins W/ Minerals) 1 Sarah 1 Lozenge BUCCAL DAILY Ascorbic Acid 500 Mg Tab 500 Mg PO DAILY Pyridium (Phenazopyridine HCl) 200 Mg Tab 200 Mg PO TIDPC Colace (Docusate Sodium) 100 Mg Cap 100 Mg PO BID PRN Zofran (Ondansetron HCl) 8 Mg Tab 8 Mg PO TID Feosol (Ferrous Sulfate) 65 Mg Tab 65 Mg PO DAILY Claritin (Loratadine) 10 Mg Tab 10 Mg PO DAILY Cranberry (Cranberry (Vaccinium Macrocarpon)) 125 Mg Tab 1 Tab PO DAILY Biotin 1 Mg Cap 1 Mg PO DAILY Super B-Complex (B-Complex W/Biotin & Folic Acid) 1 Cap 1 Cap PO DAILY Alprazolam 1 Mg Tab 1 Mg PO Q6H PRN Proventil Hfa 6.7 GM Inh (Albuterol Sulfate) 90 Mcg/Act Aer 2 Puff INH Q6H PRN Adderall (Amphetamine-Dextroamphetamine) 30 Mg Tab 30 Mg PO TID Avoid late evening doses. Space doses at least 4 to 6 hours if more than once/day dosing. Review of Systems Except as stated in HPI: all other systems reviewed are Neg Physical Exam Narrative GENERAL: Well-developed well-nourished female in no acute distress SKIN: Warm and dry. HEAD: Atraumatic. Normocephalic. EYES: Pupils equal and round. No scleral icterus. No injection or drainage. ENT: No nasal bleeding or discharge. Mucous membranes pink and moist. NECK: Trachea midline. No JVD. CARDIOVASCULAR: Regular rate and rhythm. No murmur appreciated. RESPIRATORY: No accessory muscle use. Clear to auscultation. Breath sounds equal bilaterally. GASTROINTESTINAL: Abdomen soft, mild suprapubic discomfort without guarding. Hughes catheter is in place. There is blood-tinged urine in the Hughes bag. MUSCULOSKELETAL: No obvious deformities. No edema. NEUROLOGICAL: Awake and alert. No obvious cranial nerve deficits. Motor grossly within normal limits. Normal speech. PSYCHIATRIC: Appropriate mood and affect; insight and judgment normal. Data Data Last Documented VS Vital Signs Date Time Temp Pulse Resp B/P Pulse Ox O2 Delivery O2 Flow Rate FiO2 11/23/16 18:17 18 11/23/16 17:34 97.5 84 120/73 96 Orders Lorazepam Inj (Ativan Inj) (11/23/16 18:15) Urinary Catheter Insert/Apply (11/23/16 18:27) Bladder Scan (11/23/16 18:39) MDM Medical Decision Making Medical Screen Exam Complete: Yes Emergency Medical Condition: Yes Medical Record Reviewed: Yes Differential Diagnosis Hughes catheter occlusion, bladder spasm, urethral stricture from radiation, cystitis Narrative Course 26-year-old female currently undergoing radiation therapy for cervical cancer presents with urinary retention, Hughes catheter placed on November 20. Today she feels like she is retaining urine again although some urine is going into her Hughes bag. She has noted some blood clots in the Hughes bag and some urine came out of her urethra around the Hughes catheter just prior to my examination. Likely the Hughes catheter is occluded. It will be replaced. I reviewed her previous records from her November 20 visit. Her urinalysis at that time revealed moderate blood, positive nitrites with five wbc's. Urine culture had no growth. the Hughes catheter was replaced successfully by the nurse. A bladder scan revealed only 30 mL of residual urine. The patient continues to have some urinary retention symptoms per likely the patient is having bladder spasms. The patient will be discharged with a short course of ditropan. The family plans on following with the urologist the next few days and requesting another name for referral in case Dr. Duggan is unable to see them. Diagnosis Primary Impression: Urinary retention Additional Impression: Bladder spasm Referrals: Mitch Kumar MD Additional Instructions: Follow-up with a urologist such as Dr. Duggan or Dr. Kumar in the next few days. Take the medication as needed. Return for any acutely new or worsening symptoms. Med/Other Pt SpecificInfo: Prescription(s) given Scripts Oxybutynin (Ditropan)5 Mg Tab5 Mg PO Q8HR #20 TAB Ref 0 Prov:Jayne Ulrich MD 11/23/16 Disposition: 01 DISCHARGE HOME Condition: Stable John Kelsey Nov 23, 2016 18:10 John Kelsey Nov 23, 2016 18:10
[2016-11-23] MEDS ORDERED: LORazepam 2 MG/ML VIAL IM ONE (18:15)
[2016-11-23] MEDS ORDERED: OXYB5TAB10 PO (18:56)
--- NOTE | 2016-11-23 19:09 | PD ---
Data Data Last Documented VS Vital Signs Date Time Temp Pulse Resp B/P Pulse Ox O2 Delivery O2 Flow Rate FiO2 11/23/16 18:17 18 11/23/16 17:34 97.5 84 120/73 96 Orders Lorazepam Inj (Ativan Inj) (11/23/16 18:15) Urinary Catheter Insert/Apply (11/23/16 18:27) Bladder Scan (11/23/16 18:39) MDM Supervised Visit with NICHOLE: Yes Narrative Course The history, exam, and medical decision-making in the associated midlevel provider note were completed with my assistance. I reviewed and agree with the findings presented. I attest that I had a [id number] encounter with the patient on the same day, and personally performed and documented my assessment and findings in the medical record. *My assessment and Findings: This is a 26-year-old female who has a history of cervical cancer currently undergoing radiation treatment who presents to the emergency department with discomfort on urination and some urine that came around her Hughes as well as some blood in her urine. Her Hughes catheter was changed here in the emergency department. She has no evidence of obstruction. Urine culture from several days ago was negative. Patient feels much better. She'll be prescribed oxybutynin for bladder spasms and she is developing a yeast infection from her antibiotics so I advised her to discontinue her Macrobid and take the fluconazole that was prescribed to her. I think patient is safe to follow-up with Dr. Kumar as an outpatient. Diagnosis Primary Impression: Urinary retention Additional Impression: Bladder spasm Referrals: Mitch Kumar MD Additional Instruction: Follow-up with a urologist such as Dr. Duggan or Dr. Kumar in the next few days. Take the medication as needed. Return for any acutely new or worsening symptoms. Scripts Oxybutynin (Ditropan)5 Mg Tab5 Mg PO Q8HR #20 TAB Ref 0 Prov:Jayne Ulrich MD 11/23/16 Disposition: 01 DISCHARGE HOME Condition: Stable Jayne Ulrich MD Nov 23, 2016 19:09
[2016-11-23 19:32] VITALS: BP 110/55; PULSE 92; RESP 17; O2SAT 97
[2016-11-23] MEDS ORDERED: OXYBUTYNIN CHLORIDE 5 MG TAB PO ONE (20:00)
[2017-01-26] MEDS ORDERED: VESI5TAB PO (09:35)
== END 2016-11-23 20:12 | disposition home or self-care (01) ==
LOC: NEPA 17:31
DX: C53.9 Malignant neoplasm of cervix uteri, unspecified (principal); R33.9 Retention of urine, unspecified; N32.89 Other specified disorders of bladder
CPT/HCPCS: 51702; 96372; 99283; J2060

== ENCOUNTER 2017-07-16 22:49 | Emergency (ER) | payer OTHER ==
[~2017-07-16] VITALS: Ht 157.5 cm; Wt 58.0 kg
[~2017-07-16 22:49] MED LIST changes: -COLA100C3 PO; -MACR100C2 PO; -OXYC1TAB63 PO; -PYRI200T4 PO; +VESI5TAB PO
[2017-07-16 22:50] VITALS: BP 119/66; PULSE 88; RESP 16; TEMP 97.9; O2SAT 100
--- NOTE | 2017-07-16 23:14 | PD ---
HPI Chief Complaint: Complaint Time Seen by Provider: 23:14 Travel History International Travel<30 days: No Contact w/Intl Traveler<30days: No Traveled to known affect area: No History of Present Illness HPI 26-year-old female came to the emergency room with history of frequency, urgency and feeling of incomplete emptying of her bladder. Patient had a hysterectomy done 3 months ago for cancer. Since then she has had frequent bladder issues including UTI. Patient says that her urine stream has not been normal since the surgery but for past few days it has been worse where she feels like she has to force to PE and then it comes out like a spray. Her mother is here with her who is also giving history. She said that patient has a urologist and she would try to get an appointment tomorrow with the urologist. Vital signs otherwise stable. No history of fever or chills PFSH Past Medical History Narrative Medical List of her past medical, surgical, social and family history is reviewed from the nursing note. ADD: Yes Anemia: Yes Anxiety: Yes Cancer: Yes (CERVICAL CA) Cardiovascular Problems: No Chemotherapy: Yes (CERVICAL CANCER) Diabetes: No Diminished Hearing: No Endocrine: No Gastrointestinal Disorders: No Genitourinary: No Hepatitis: No Hiatal Hernia: No Hypertension: No Immune Disorder: No Musculoskeletal: No Neurologic: No Psychiatric: Yes (ANXIETY) Reproductive: Yes Respiratory: Yes (STRESS ASTHMA) Immunizations Current: Yes Radiation Therapy: Yes Thyroid Disease: No Tetanus Vaccination: < 5 Years Influenza Vaccination: No ?: Not Past Surgical History Abdominal Surgery: No AICD: No Cardiac Surgery: No Ear Surgery: No Endocrine Surgery: No Eye Surgery: No Genitourinary Surgery: No Gynecologic Surgery: Yes (CONE BIOPSY, OVARIAN TRANSPOSITION, BILATERAL SALPINGECTOMY) Joint Replacement: No Neurologic Surgery: No Oral Surgery: No Pacemaker: No Thoracic Surgery: No Other Surgery: Yes (PORT PLACEMENT) Social History Alcohol Use: No Tobacco Use: No Substance Use: No Allergies-Medications (Allergen,Severity, Reaction): Coded Allergies: tramadol (Unverified Allergy, Severe, Hives, 07/16/17) amoxicillin (Unverified Allergy, Unknown, 07/16/17) penicillin G (Unverified Allergy, Unknown, 07/16/17) Comments List of her allergies reviewed from the nursing note. Reported Meds & Prescriptions Reported Meds & Active Scripts Active Macrobid (Nitrofurantoin Monoh/Nitrofur Macro) 100 Mg Cap 100 Mg PO BID Reported Claritin (Loratadine) 10 Mg Cap 10 Mg PO DAILY Airborne (Multiple Vitamins W/ Minerals) 1 Sarah 1 Lozenge BUCCAL DAILY Ascorbic Acid 500 Mg Tab 500 Mg PO DAILY Biotin 1 Mg Cap 1 Mg PO DAILY Alprazolam 1 Mg Tab 1 Mg PO Q6H PRN Proventil Hfa 6.7 GM Inh (Albuterol Sulfate) 90 Mcg/Act Aer 2 Puff INH Q6H PRN Adderall (Amphetamine-Dextroamphetamine) 30 Mg Tab 30 Mg PO TID Avoid late evening doses. Space doses at least 4 to 6 hours if more than once/day dosing. Narrative Medication List of her home medications reviewed from the nursing note. Review of Systems Except as stated in HPI: all other systems reviewed are Neg Genitourinary: Positive: Urgency, Frequency, Dysuria Physical Exam Narrative GENERAL: Awake, alert, mild distress SKIN: Focused skin assessment warm/dry. HEAD: Atraumatic. Normocephalic. EYES: Pupils equal and round. No scleral icterus. No injection or drainage. ENT: No nasal bleeding or discharge. Mucous membranes pink and moist. NECK: Trachea midline. No JVD. CARDIOVASCULAR: Regular rate and rhythm. No murmur appreciated. RESPIRATORY: No accessory muscle use. Clear to auscultation. Breath sounds equal bilaterally. GASTROINTESTINAL: Abdomen soft, mild to moderate suprapubic tenderness, nondistended. Hepatic and splenic margins not palpable. MUSCULOSKELETAL: No obvious deformities. No clubbing. No cyanosis. No edema. NEUROLOGICAL: Awake and alert. No obvious cranial nerve deficits. Motor grossly within normal limits. Normal speech. PSYCHIATRIC: Appropriate mood and affect; insight and judgment normal. Data Data Last Documented VS Orders Orders Urinalysis - C+S If Indicated (07/16/17 23:08) Bladder Scan PRN (07/16/17 23:08) Urine Culture (07/16/17 23:00) Nitrofurantoin Monohyd Macrocr (Macrobid (07/16/17 23:30) Ed Discharge Order (07/16/17 23:27) Labs Laboratory Tests Test 07/16/17 23:00 Urine Color YELLOW Urine Turbidity HAZY Urine pH 6.0 Urine Specific [place] 1.029 Urine Protein 30 mg/dL Urine Glucose (UA) NEG mg/dL Urine Ketones NEG mg/dL Urine Occult Blood NEG Urine Nitrite NEG Urine Bilirubin NEG Urine Urobilinogen 2.0 MG/DL Urine Leukocyte Esterase LARGE Urine RBC 6 /hpf Urine WBC 68 /hpf Urine Squamous Epithelial Cells 4 /hpf Urine Amorphous Sediment RARE Urine Bacteria RARE /hpf Urine Mucus FEW /lpf Microscopic Urinalysis Comment CULTURE INDICATED MDM Medical Decision Making Medical Screen Exam Complete: Yes Emergency Medical Condition: Yes Medical Record Reviewed: Yes Differential Diagnosis Cystitis, urinary retention Narrative Course 11:30 PM a bedside bladder scan was done which showed at the mall 75 mL's of postvoid urine. This ruled out urinary retention. UA is positive. I've given her dose of Macrobid. Patient will be discharged home on a prescription for antibiotic. Stressed that she should be seen by her urologist possibly for a cystoscopy. Procedures EKG Prior to Arrival: No Diagnosis Primary Impression: Cystitis Additional Impression: Bladder spasms Referrals: Primary Care Physician 2 days Additional Instructions: Please return to the ER if the condition worsens or any other new concerns. 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 Take the medication as per the prescription direction. Drink lots of fluid and cranberry juice. Med/Other Pt SpecificInfo: Prescription(s) given Scripts Nitrofurantoin Monohydrate Macrocrystals (Macrobid) 100 Mg Cap 100 MG PO BID for Infection, #20 CAP 0 Refills Prov: Jian Rodriguez MD 07/16/17 Disposition: 01 DISCHARGE HOME Condition: Stable Jian Rodriguez MD Jul 16, 2017 23:14
[2017-07-16] MEDS ORDERED: CLAR10CA3 PO ×2 (23:18)
[2017-07-16 23:20] LABS: AMORPHOUS SEDIMENT, URINE RARE; BACTERIA, URINE RARE /hpf; BILIRUBIN, URINE NEG (NEG); BLOOD, URINE NEG (NEG); GLUCOSE,URINE NEG (NEG); KETONE, URINE NEG (NEG); MUCUS URINE FEW /lpf (OCC); NITRITE,URINE NEG (NEG); SQUAMOUS EPITHELIAL CELL URINE 4 /hpf (0-5); URINE COLOR YELLOW (YELLW/STRAW); URINE LEUKOCYTE ESTERASE LARGE (NEG)
[2017-07-16] MEDS ORDERED: MACR100C2 PO ×2 (23:28)
[2017-07-16] MEDS ORDERED: NITROFURANTOIN MONOHYD MACROCR 100 MG CAP PO ONE ×2 (23:30)
== END 2017-07-16 23:41 | disposition home or self-care (01) ==
LOC: NEPC 22:49
DX: N30.90 Cystitis, unspecified without hematuria (principal); B96.89 Other specified bacterial agents as the cause of diseases classified elsewhere; C53.9 Malignant neoplasm of cervix uteri, unspecified
CPT/HCPCS: 81001; 87086; 99283

== ENCOUNTER 2018-01-31 15:56 | Emergency (ER) | payer OTHER ==
[~2018-01-31 15:56] MED LIST changes: -B-COCAP9 PO; +CLAR10CA3 PO; -CRAN125T PO; -FERR65TA PO; -LORA-361 PO; +MACR100C2 PO; -VESI5TAB PO; -ZOFR8TAB PO
[2018-01-31 16:00] VITALS: BP 123/98; PULSE 90; RESP 16; TEMP 97.9; O2SAT 99
[2018-01-31] MEDS ORDERED: SODIUM CHLORIDE 0.9% FLUSH 10 ML FLUSH IV FLUSH PRN (16:15)
--- NOTE | 2018-01-31 16:19 | PD ---
HPI Chief Complaint: Abdominal Pain Time Seen by Provider: 16:05 Travel History International Travel<30 days: No Contact w/Intl Traveler<30days: No Traveled to known affect area: No History of Present Illness HPI The patient was seen and examined in the presence of the nurse. This patient complains of vaginal and pelvic pain in the suprapubic region. Duration 1 day. It started last night during the active sexual intercourse. Severity is moderate. She has bilateral lower quadrant abdominal pain. She has history of a hysterectomy from cervical cancer last April. She does not have vomiting or fever or diarrhea. Her ovaries are in place and were tacked to her hip bone according to her. No hematuria. No alleviating factors. No exacerbating factors. PFSH Past Medical History ADD: Yes Anemia: Yes Anxiety: Yes Cancer: Yes (CERVICAL CA) Cardiovascular Problems: No Chemotherapy: Yes (CERVICAL CANCER) Diabetes: No Diminished Hearing: No Endocrine: No Gastrointestinal Disorders: No Genitourinary: No Hepatitis: No Hiatal Hernia: No Hypertension: No Immune Disorder: No Musculoskeletal: No Neurologic: No Psychiatric: Yes (ANXIETY) Reproductive: Yes Respiratory: Yes (STRESS ASTHMA) Immunizations Current: Yes Radiation Therapy: Yes Thyroid Disease: No ?: Not Past Surgical History Abdominal Surgery: No AICD: No Cardiac Surgery: No Ear Surgery: No Endocrine Surgery: No Eye Surgery: No Genitourinary Surgery: No Gynecologic Surgery: Yes (CONE BIOPSY, OVARIAN TRANSPOSITION, BILATERAL SALPINGECTOMY) Hysterectomy: Yes Joint Replacement: No Neurologic Surgery: No Oral Surgery: No Pacemaker: No Thoracic Surgery: No Other Surgery: Yes (PORT PLACEMENT) Social History Alcohol Use: No Tobacco Use: No Substance Use: No Allergies-Medications (Allergen,Severity, Reaction): Coded Allergies: tramadol (Unverified Allergy, Severe, Hives, 01/31/18) amoxicillin (Unverified Allergy, Unknown, 01/31/18) penicillin G (Unverified Allergy, Unknown, 01/31/18) Reported Meds & Prescriptions Reported Meds & Active Scripts Active Percocet (Oxycodone-Acetaminophen) 5-325 mg Tab 1 Tab PO Q6H PRN Reported Claritin (Loratadine) 10 Mg Cap 10 Mg PO DAILY Airborne (Multiple Vitamins W/ Minerals) 1 Sarah 1 Lozenge BUCCAL DAILY Biotin 1 Mg Cap 1 Mg PO DAILY Alprazolam 1 Mg Tab 1 Mg PO Q6H PRN Proventil Hfa 6.7 GM Inh (Albuterol Sulfate) 90 Mcg/Act Aer 2 Puff INH Q6H PRN Adderall (Amphetamine-Dextroamphetamine) 30 Mg Tab 30 Mg PO TID Avoid late evening doses. Space doses at least 4 to 6 hours if more than once/day dosing. Review of Systems General / Constitutional: No: Fever Eyes: No: Visual changes HENT: No: Headaches Cardiovascular: No: Chest Pain or Discomfort Respiratory: No: Shortness of Breath Gastrointestinal: Positive: Abdominal Pain Genitourinary: Positive: Pelvic Pain, No: Dysuria Musculoskeletal: No: Pain Skin: No Rash Neurologic: No: Weakness Psychiatric: No: Depression Endocrine: No: Polydipsia Hematologic/Lymphatic: No: Easy Bruising Physical Exam Narrative GENERAL: Well-nourished, well-developed patient with abdominal pain SKIN: Focused skin assessment reveals no rash and nodules. Skin is Warm and dry. HEAD: Atraumatic. Normocephalic. EYES: Pupils equal and round. No scleral icterus. No injection or drainage. ENT: No nasal bleeding or discharge. Mucous membranes pink and moist. NECK: Trachea midline. No JVD. CARDIOVASCULAR: Regular rate and rhythm. No murmur appreciated. RESPIRATORY: No accessory muscle use. Clear to auscultation. Breath sounds equal bilaterally. GASTROINTESTINAL: Abdomen soft, bilateral lower quadrant tenderness without rebound or guarding , nondistended. Hepatic and splenic margins not palpable. MUSCULOSKELETAL: No obvious deformities. No clubbing. No cyanosis. No edema. NEUROLOGICAL: Awake and alert. No obvious cranial nerve deficits. Motor grossly within normal limits. Normal speech. PSYCHIATRIC: Appropriate mood and affect; insight and judgment normal. Pelvic: I did a speculum exam. In the posterior vault there is a little bit of serous fluid and blood. I used suction to clear this away so I can get a look at the incision. I believe there is about 2 cm of dehiscence. Data Data Last Documented VS Vital Signs Date Time Temp Pulse Resp B/P (MAP) Pulse Ox O2 Delivery O2 Flow Rate FiO2 01/31/18 16:00 97.9 90 16 123/98 (106) 99 Orders Orders Basic Metabolic Panel (Bmp) (01/31/18 16:14) Complete Blood Count With Diff (01/31/18 16:14) Prothrombin Time / Inr (Pt) (01/31/18 16:14) Act Partial Throm Time (Ptt) (01/31/18 16:14) Iv Access Insert/Monitor (01/31/18 16:14) NPO (01/31/18 16:14) Sodium Chloride 0.9% Flush (Ns Flush) (01/31/18 16:15) Morphine Inj (Morphine Inj) (01/31/18 17:00) Ondansetron Odt (Zofran Odt) (01/31/18 17:00) Labs Laboratory Tests Test 01/31/18 16:30 White Blood Count 15.4 TH/MM3 Red Blood Count 4.39 MIL/MM3 Hemoglobin 14.1 GM/DL Hematocrit 39.4 % Mean Corpuscular Volume 89.6 FL Mean Corpuscular Hemoglobin 32.2 PG Mean Corpuscular Hemoglobin Concent 35.9 % Red Cell Distribution Width 13.7 % Platelet Count 347 TH/MM3 Mean Platelet Volume 7.6 FL Neutrophils (%) (Auto) 87.4 % Lymphocytes (%) (Auto) 5.5 % Monocytes (%) (Auto) 5.9 % Eosinophils (%) (Auto) 0.8 % Basophils (%) (Auto) 0.4 % Neutrophils # (Auto) 13.5 TH/MM3 Lymphocytes # (Auto) 0.9 TH/MM3 Monocytes # (Auto) 0.9 TH/MM3 Eosinophils # (Auto) 0.1 TH/MM3 Basophils # (Auto) 0.1 TH/MM3 CBC Comment DIFF FINAL Differential Comment Prothrombin Time 10.0 SEC Prothromb Time International Ratio 1.0 RATIO Activated Partial Thromboplast Time 27.0 SEC Blood Urea Nitrogen 14 MG/DL Creatinine 0.52 MG/DL Random Glucose 94 MG/DL Calcium Level 8.2 MG/DL Sodium Level 140 MEQ/L Potassium Level 3.6 MEQ/L Chloride Level 107 MEQ/L Carbon Dioxide Level 24.2 MEQ/L Anion Gap 9 MEQ/L Estimat Glomerular Filtration Rate 139 ML/MIN MDM Medical Decision Making Medical Screen Exam Complete: Yes Emergency Medical Condition: Yes Medical Record Reviewed: Yes Differential Diagnosis Appendicitis, colitis, ovarian cystic disease. Narrative Course I have reviewed the patient's electronic medical record. IV placed and labs sent CBC shows leukocytosis of 15.4 thousand. Metabolic studies are normal I gave a dose of morphine and Zofran for symptom relief I reviewed with the OB hospitalist pet food deboner. I have asked that they will come down and examine the patient given the concern for dehiscence. He is now at the bedside. OB specialist has evaluated the patient. There is no dehiscence but there is induration at the cuff and presentation concerning for recurrence of her cervical cancer. He does not recommend any imaging or antibiotics. Recommends close follow-up with her personal OB physician She will call him in the morning for follow-up I wrote a dozen Percocet for symptom relief Diagnosis Primary Impression: Recurrent cervical cancer Additional Impression: Pelvic pain in female Additional Instructions: The patient was advised to follow up with their physician and return if they worsen. The patient was warned about potential sedation for the medications they will receive on prescription. Med/Other Pt SpecificInfo: Prescription(s) given Scripts Oxycodone-Acetaminophen (Percocet) 5-325 mg Tab 1 TAB PO Q6H Y for PAIN, #12 TAB 0 Refills Prov: Osmany English MD 01/31/18 Disposition: DISCHARGE HOME Condition: Stable Osmany English MD January 31, 2018 16:19
[2018-01-31 16:39] LABS: AUTOMATED NEUTROPHIL # 13.5 TH/MM3 (1.8-7.7); BASOPHIL # 0.1 TH/MM3 (0-0.2); BASOPHIL % 0.4 % (0.0-2.0); EOSINOPHIL # 0.1 TH/MM3 (0-0.4); EOSINOPHIL % 0.8 % (0.0-4.0); HEMATOCRIT 39.4 % (35.0-46.0); HEMOGLOBIN 14.1 GM/DL (11.6-15.3); LYMPH % 5.5 % (9.0-44.0); LYMPHOCYTE # 0.9 TH/MM3 (1.0-4.8); MEAN CELL VOLUME 89.6 FL (80.0-100.0); MEAN CORPUSCULAR HEMOGLOBIN 32.2 PG (27.0-34.0); MEAN CORPUSCULAR HGB CONC 35.9 % (32.0-36.0); MEAN PLATELET VOLUME 7.6 FL (7.0-11.0); MONO % 5.9 % (0.0-8.0); MONOCYTE # 0.9 TH/MM3 (0-0.9); NEUT % 87.4 % (16.0-70.0); PLATELET COUNT 347 TH/MM3 (150-450); RED BLOOD COUNT 4.39 MIL/MM3 (4.00-5.30); RED CELL DISTRIBUTION WIDTH 13.7 % (11.6-17.2); WHITE BLOOD COUNT 15.4 TH/MM3 (4.0-11.0)
[2018-01-31] MEDS ORDERED: MORPHINE SULFATE 4 MG/ML INJ IV PUSH ONE (17:00)
[2018-01-31] MEDS ORDERED: ONDANSETRON ODT 4 MG TAB PO ONE (17:00)
[2018-01-31 17:12] LABS: BICARBONATE 24.2 MEQ/L (21.0-32.0); CALCIUM 8.2 MG/DL (8.5-10.1); CREATININE 0.52 MG/DL (0.50-1.00)
[2018-01-31] MEDS ORDERED: PERC5TAB12 PO (17:31)
== END 2018-01-31 18:04 | disposition home or self-care (01) ==
LOC: NEPC 15:56
DX: C53.9 Malignant neoplasm of cervix uteri, unspecified (principal); R10.2 Pelvic and perineal pain; F41.9 Anxiety disorder, unspecified; Z85.41 Personal history of malignant neoplasm of cervix uteri; Z88.0 Allergy status to penicillin; Z79.899 Other long term (current) drug therapy
CPT/HCPCS: 80048; 85025; 85610; 85730; 96374; 99284; J2270

== ENCOUNTER 2018-02-17 19:33 | Emergency (ER) | payer OTHER ==
[~2018-02-17 19:33] MED LIST changes: -ASCO500T PO; -MACR100C2 PO; +PERC5TAB12 PO
== END 2018-02-17 20:17 | disposition left against medical advice (07) ==
LOC: NED 19:33
DX: Z03.89 Encounter for observation for other suspected diseases and conditions ruled out (principal)
CPT/HCPCS: 99281